=== PATIENT | female | born 1995 | race Two or more races ===

== ENCOUNTER 2022-09-16 13:14 | Outpatient (REF) | payer MEDICAID, SELFPAY ==
[2022-09-16 21:01] LABS: Abs Immature Grans 0.02 10^3/uL (0.0-0.06); Absolute Basophil Count 0.06 10^3/uL (0.0-0.2); Absolute Eosinophil Count 0.21 10^3/uL (0.0-0.7); Absolute Neutrophil Count 4.98 10^3/uL (1.2-6.7); Basophils % 0.8; Eosinophils % 2.6; HCT 47.5 % (36.0-46.0); HGB 16.6 g/dL (11.2-15.7); Immature Grans % 0.3; Lymphocytes % 27.6; MCH 32.4 pg (27.0-33.0); MCHC 34.9 % (32.0-36.0); MCV 93 fL (80-95); Monocytes % 6.3; Neutrophils % 62.4; Platelet Count 297 10^3/uL (130-400); RBC 5.13 10^6/uL (3.93-5.22); RDW 11.9 % (11.7-14.6); RDW-SD 40.3 fL; WBC 7.97 10^3/uL (4.4-10.8)
[2022-09-16 21:20] LABS: ALT 29 U/L (14-59); AST 24 U/L (15-37); Albumin 4.2 g/dL (3.4-5.0); Alkaline Phosphatase 127 U/L (46-116); Anion Gap 9.3 mmol/L (3-11); BUN 10 mg/dL (7-18); Bilirubin, Total 0.5 mg/dL (0.2-1.0); CO2 23.7 mmol/L (21.0-32.0); CREATININE 0.9 mg/dL (0.55-1.02); Calcium 9.4 mg/dL (8.5-10.1); Chloride 104 mmol/L (98-107); Estimated GFR 89.86 (mL/min/1.73m2); Glucose 87 mg/dL (74-106); Potassium 4.2 mmol/L (3.5-5.1); Sodium 137 mmol/L (136-145); TSH 1.16 uIU/mL (0.36-3.74); Total Protein 7.7 g/dL (6.4-8.2)
[2022-09-20 11:15] LABS: FSH 7.2 mIU/mL (See Note)
== END 2022-09-16 13:15 | disposition home or self-care (01) ==
LOC: LBN 13:14
PROVIDERS: PCP Nurse Practitioner Family; Visit Provider Nurse Practitioner Family
DX: N91.0 Primary amenorrhea (principal); R53.83 Other fatigue; L72.8 Other follicular cysts of the skin and subcutaneous tissue; R61 Generalized hyperhidrosis
CPT/HCPCS: 80053; 83001; 83002; 84443; 85025

== ENCOUNTER 2022-10-04 01:48 | Outpatient (CLI) | payer MEDICAID, SELFPAY ==
--- NOTE | 2022-10-04 07:15 | DI.US_ITS ---
Exam(s) US SOFT TISS EXTREMITY/GROIN EXAM: US SOFT TISS EXTREMITY/GROIN CLINICAL HISTORY: evaluate pathology rt groin, groin mass, r19.09. TECHNIQUE: Ultrasound was performed using standard protocol. COMPARISON: No exams were available for comparison FINDINGS: Sonographic assessment utilizing grayscale and color Doppler imaging was performed and targeted to th e area of clinical concern. There is a 1.9 x 0.9 x 2.0 cm hypoechoic vascular nodule in the subcutaneous tissues in the right ing uinal region. There is also a 3.1 x 0.9 x 1.2 cm sonographically benign-appearing lymph node in the adjacent soft tissues. IMPRESSION: 1.9 x 0.9 x 2 cm complex vascular nodule in the right inguinal region. This may represent a enlarged lymph node. Other subcutaneous masses cannot be entirely excluded. Please correlate with patient's medical history. A follow-up ultrasound in 2-3 weeks is recommended for re-evaluation. DATA REPOSITORY:
== END 2022-10-04 02:08 ==
LOC: DI 01:48
PROVIDERS: PCP Nurse Practitioner Family; Visit Provider Nurse Practitioner Family
DX: R22.41 Localized swelling, mass and lump, right lower limb; R59.0 Localized enlarged lymph nodes; R19.03 Right lower quadrant abdominal swelling, mass and lump
CPT/HCPCS: 76882

== ENCOUNTER 2022-11-23 02:10 | Outpatient (CLI) | payer MEDICAID, SELFPAY ==
--- NOTE | 2022-11-23 07:45 | DI.US_ITS ---
Exam(s) US SOFT TISS EXTREMITY/GROIN EXAM: US SOFT TISS EXTREMITY/GROIN CLINICAL HISTORY: re-eval mass of right groin present for months, R19.09, rt inguinal mass,R1. TECHNIQUE: Ultrasound was performed using standard protocol. COMPARISON: US US SOFT TISS EXTREMITY/GROIN from 10/04/2022 FINDINGS: Again noted is a previously described superficially located abnormal appearing nodule measures approx imately 1.8 x 1.5 x 1. 0 cm and appears vascular. Appear similar to previous. There are other more normal appearing slightly prominent lymph nodes in the ipsilateral right groin. IMPRESSION: Persistent abnormal vascular 18 x 15 x 10 mm nodule in the right groin, not decreased in size. This may represent an abscess in the correct clinical setting. Other considerations are abnormal vascular lymph node or other vascular lesion. Consider surgical co nsult. DATA REPOSITORY:
== END 2022-11-23 02:30 ==
LOC: DI 02:10
PROVIDERS: PCP Nurse Practitioner Family; Visit Provider Nurse Practitioner Family
DX: R19.09 Other intra-abdominal and pelvic swelling, mass and lump (principal)
CPT/HCPCS: 76882

== ENCOUNTER 2022-12-01 06:21 | Day surgery (SDC) | payer MEDICAID, SELFPAY ==
[2022-12-01] VITALS (7 sets, daily range): BP systolic 94–125; BP diastolic 35–78; PULSE 75–83; RESP 16–21; TEMP 36–36.8; O2SAT 94–99; BMI 48.0
--- NOTE | 2022-12-01 06:16 | W.PM.PROGNOT ---
Date of Service Date of service: 12/01/22 Time of Service: 06:16 Assessment and Plan Assessment and plan (1) Sebaceous cyst: Status: Acute Assessment and plan: Gain discussed risks, benefits and complications of the procedure. Complications include but are not limited to bleeding, pain, injury to nerves, infection, wound dehisence, and recurrance. Patient seems to have a good understanding of the risks and is willing to proceed. No guarantees were given or implied. Proceed with excision of sebaceous cyst in the right groin Subjective Subjective Interval history since last seen: Patient is here today for excision of a small sebaceous cyst of the right groin. There have been no changes in her health since she was last seen. Exam Const General: comfortable and anxious Orientation: alert and oriented x3 HENMT Head: normocephalic and atraumatic Resp Effort & Inspection: normal respiratory effort Auscultation: clear to auscultation bilaterally Cardio Rate: regular rate Rhythm: regular rhythm GI Other: Right groing- small sebaceous cyst palpated Time Spent with Patient Time Spent with Patient: <25 minutes Time was spent: counseling the patient
--- NOTE | 2022-12-01 06:21 | W.PM.OP ---
Date of service: 12/01/22 Time of Service: 07:59 Operative Note Operative Note DATE OF PROCEDURE: 12/01/22 PRE-OP DIAGNOSIS: right groin sebaceous cyst POST-OP DIAGNOSIS: same PROCEDURE: ecxision of sebaceous cyst SURGEON: Deneen Hoyt ANESTHESIA TYPE: Local By Surgeon and General:No Airway Refer to Anesthesia Record COMPLICATIONS: None Patient was transported to: PACU Patient's condition: stable Indications: Emily is a pleasant 27-year-old female who I saw in the office for a cyst in her right groin. Ultrasound suggestive of a sebaceous cyst. Underlying lymph nodes were normal. Patient was concerned because of a family history of lymphoma. We discussed excision of the cyst in the office versus the operating room. The patient is quite anxious and would prefer to be sedated. Risks benefits and complications of the procedure were reviewed with her. I saw her in same-day surgery the morning of the procedure. We reviewed the risks and benefits again as well as the complications. Patient understood the risks and complications and wished to proceed. Findings: small sebaceous cyst. Normal feeling lymph nodes Procedure Description: After informed consent was obtained and the right groin was marked, the patient was taken to the operating room and placed in a supine position. Monitors were applied and a timeout was done. The patient was then placed under sedation. Once comfortable the skin was prepped and draped in a sterile surgical fashion. Next 1% lidocaine with epinephrine was injected around the sebaceous cyst in the right groin. An elliptical incision was made around the palpable lesion with a 15 blade. Dissection was done around the lesion with curved iris scissors and the 15 blade. Once the lesion was completely dissected it was placed into formalin and sent to pathology. There was some bleeding noted and this was suture ligated. The wound was irrigated with some saline. Once the wound was clean and dry the subcutaneous tissue was reapproximated with 3-0 Vicryl interrupted sutures. The dermis was closed with a running 4-0 monoceyl suture. Skin was cleaned and dried and dermabond was applied. The patient tolerated the procedure well and there were no immediate complications. Needle counts were correct at the end of the case.
--- NOTE | 2022-12-01 06:26 | W.PM.DSUDISC ---
Date of service: 12/01/22 Time of Service: 08:03 Discharge Plan Disposition Patient Disposition: Home Condition: Stable Discharge Details Reason For Visit: sebaceous cyst excision Attending Provider: Deneen Hoyt Primary Care Provider: Alicia Gray Home Meds and New Rx's Prescriptions: Continued dextroamphetamine-amphetamine [Adderall XR] 20 mg capsule,extended release 24hr 40 mg PO DAILY albuterol sulfate 90 mcg/actuation HFA aerosol inhaler 2 puff inhalation Q6H PRN (Reason: shortness of breath or wheezing) Qty: 8.5 0RF (DME) Aerochamber MV Spacer See Rx Instructions .Route Qty: 1 0RF Rx Instructions: As directed norgestimate-ethinyl estradiol [Sprintec (28)] 0.25-35 mg-mcg tablet 1 tab PO DAILY Qty: 84 4RF clindamycin phosphate 1 % solution 1 applic topical BID Rx Instructions: apply every 12 hours to cystic lesions Discharge Instructions Instructions: Care For Your Absorbable Stitches (DC) Additional Instructions: Activity at Home after surgery: 1. As tolerated Diet, Nutrition, & wound healin. As tolerated Pain Medications: 1. Tylenol 650mg every 6 hours as needed and Ibuprofen 600 mg every 6 hours as needed. You may alternate between the 2 medications every 3 hours For Constipation: 1. Take Milk of Magnesia or MiraLax as needed for constipation Other: 1. You may shower daily. Do not scrub the incisions 2. Do not soak the incisions for 1 week 3. You may alternate ice and heat as needed for pain and swelling Wound Care: 1. Keep the incisions clean and dry Please call our office if you develop: 1. Fevers >101.5 2. Nausea or Vomiting 3. Worsening pain 4. Redness and thick discharge from the wounds If after hours please call the Hospital at and ask to speak to the on-call surgeon FINDINGS: There was a sebaceous cyst. I did not feel or see any abnormal Lymph nodes Stand Alone Forms: Anesthesia Discharge InstSander Moreno (DSU) Activity:: Activity as Tolerated Remove Dressings/Wound Care:: Do Not Remove Shower/Bathe:: 24 hours Diet:: As Tolerated Discharge Orders Discharge Orders: Discharge Order (Routine); Ordered 12/01/22 Ordered By: Deneen Hoyt DS: Diagnosis Discharge Diagnosis (1) Sebaceous cyst: Status: Acute Asessment and Plan: Saw Emily in SDS once awake from her deep sedation. We reviewed the findings at time of surgery. Reviewed activity. I would recommend not doing Physical therapy tomorrow. She should be OK to resume PT on Tuesday. She has minimal pain at the surgical site. She has had no N/V. She has tolerated clear liquids and toast. She has no questions at this time.
--- NOTE | 2022-12-01 06:40 | ANES.PREOP_ITS ---
General Info Date of Service Date Performed: 12/01/22 Height: 5 ft 4 in Weight: 127.006 kg Body Mass Index (BMI): 48.0 Surgical Procedure: Operation Date: 12/01/22 07:40 Proposed Procedure Side Surgeon p Excision Cyst Rt Groin Right Deneen Hoyt MD s Possible Excisional Biopsy Lymph Node Right Deneen Hoyt MD Meds Allergies and Home Medications Allergies Allergy/AdvReac Type Severity Reaction Status Date / Time No Known Allergies Allergy Verified 12/01/22 06:33 Home Medication Medication Instructions Recorded albuterol sulfate 90 mcg/actuation 2 puff inhalation Q6H PRN 09/16/22 aerosol inhaler shortness of breath or wheezing #8.5 grams clindamycin phosphate 1 % topical 1 applic topical BID 09/16/22 solution dextroamphetamine-amphetamine ER 40 mg PO DAILY 09/16/22 20 mg 24hr capsule,extend release (Adderall XR) inhalational spacing device #1 ea 09/16/22 (Aerochamber MV spacer) norgestimate 0.25 mg-ethinyl 1 tab PO DAILY #84 tabs 10/04/22 estradiol 35 mcg tablet (Sprintec (28)) Current Visit Medications: Current Medications Generic Name Dose Route Start Last Admin Trade Name Freq PRN Reason Stop Dose Admin Ringer's Solution 1,000 mls @ 80 mls/hr 12/01/22 06:00 IV 12/30/22 23:59 INFUSION [facility] Cefazolin Sodium 3,000 mg/ 100 mls @ 200 mls/hr 12/01/22 06:00 Sodium Chloride IVPB 12/01/22 16:00 PREOP [facility] Ondansetron HCl 4 mg/ Sodium 52 mls @ 200 mls/hr 12/01/22 06:27 Chloride IVPB 12/31/22 06:26 Q6H PRN PRN IV Miscellaneous Supplies 1 each 12/01/22 06:00 Iv Access IV 12/30/22 23:59 DIRECTED CHRISTINA Ibuprofen 600 mg 12/01/22 06:27 Ibuprofen 600 Mg Tab PO 12/31/22 06:26 Q6H PRN PRN Pain Sodium Chloride 0 ml 12/01/22 06:00 Normal Saline Flush 10 Ml Syr IV 12/30/22 23:59 PRN PRN Sodium Chloride 0 ml 12/01/22 06:00 Normal Saline 10 Ml Vial IJ 12/30/22 23:59 DIRECTED PRN Sterile Water 0 ml 12/01/22 06:00 Water,Injection,Sterile 10 Ml Vial IJ 12/30/22 23:59 DIRECTED PRN PFSH Active Problems Active Problems: Problem Status Onset Code Sebaceous cyst L72.3 Mass of right inguinal region R19.09 Borderline personality disorder F60.3 Chronic low back pain M54.50, G89.29 Depression F32.A Asthma J45.909 Migraine G43.909 ADHD F90.9 PCOS (polycystic ovarian syndrome) E28.2 Medical History Medical History Heroin addiction Sober 10 years, used methadone program in [place] Surgical History Surgical History History of cholecystectomy Tobacco Smoking/Tobacco Use Status: Current every day Tobacco Type: cigarettes Alcohol Alcohol Intake: current Alcohol intake frequency: a few times a month Substance Use Substance use: Daily Substance use type: former substance user Date of last use: Heroin 2012, marijuana and heroin Details: Clean from heroin 10 years Prental History History 8 Para Hx # Term Pregnancies Multiple births Hx # Pregnancies Ectopic pregnancies AB induced Hx Number of Living Children 0 AB spontaneous Vital Signs and Lab Results Lab Results Blood Type / Crossmatch: No Data to Display Complete Blood Count: No Data to Display Complete Metabolic Panel: No Data to Display Liver Function Panel: No Data to Display Coagulation Panel: No Data to Display Cardiac Panel: No Data to Display Arterial Blood Gas: No Data to Display Venous Blood Gas: No Data to Display Pancreas Panel: No Data to Display Thyroid Panel: No Data to Display Infectious Disease: No Data to Display Blood Cultures: No Data to Display Toxicology Panel: No Data to Display Panel: No Data to Display Anesthesia Assessment and Plan Anesthesia History Personal History: No History of Anesthesia Complications Family History: No Family History of Anesthesia Complications Exercise Tolerance Exercise Tolerance: Metabolic Equivalents>4 Pertinent Negatives Pertinent Negatives: No Symptoms of GERD, No Major Cardiovascular Symptoms or Complaints, No Major Pulmonary Symptoms or Complaints and No History of CVA/TIA Cardiac & Pulmonary Exam Cardiac Exam: Normal S1/S2 Heart Sounds Pulmonary Exam: Clear Bilateral Breath Sounds Implantable Cardiac Device Does patient have a Pacemaker or an ICD?: No Airway Exam Known Difficult Airway: No Mallampati Class: 2 Mouth Opening: Normal (> 3cm) Thyromental Distance: Greater than 3 cm Neck Range of Motion: Full ROM Neck Circumference: Normal Teeth Condition: Normal Dentition ASA Classification ASA Score: ASA 3 Emergency Case?: No NPO Status NPO Status: NPO Clears >2 hours, Solids >8 hours Status Status: Negative HCG Anesthesia Plan Resuscitation Status: Full Code Anesthesia Technique: General Anesthesia Airway Planned: Natural Airway Monitors Used: Standard Monitors
[2022-12-01] MEDS: Lactated Ringers 1,000 ML 80 ML IV (06:54)
[2022-12-01] MEDS: ceFAZolin 3,000 MG in Normal Saline 100 ML 200 MG IVPB (07:25)
[2022-12-01] MEDS: Lidocaine 1% Multi-Dose W/EPI 1/100,000 50 ML VIAL (07:39)
--- NOTE | 2022-12-01 07:49 | SOFT_PTH ---
PATIENT: Elizabeth Streeter LOC: [facility] U#:[id number] AGE/SX: 27/F ROOM: RE12/01/[address]: Deneen Hoyt MD : 1995 BED: DIS: 12/01/2022 SPEC #: [id number] RECD: 12/01/22 12:32 STATUS: VIK REJeremy #: [id number] VIN: 12/01/22 07:[address]: Deneen Hoyt DEPT: Surgical Specimen RECD BY: Nataliia Woodson ENTERED: 12/01/22 12:33 SP TYPE: SOFT OTHR DR: ADRIANA Ken Tissues: 1 - SOFT TISSUE-CYST(NOT LIPOMA) Procedures: GROSS AND MICRO LEVEL 3 Comments: [id number]
--- NOTE | 2022-12-01 08:46 | W.ANESPOSTOP ---
Postoperative Evaluation Date, Time and Location Date Performed: 12/01/22 Time Performed: 08:22 Patient Location: PACU Vital Signs Most Recent Imported Vital Signs: Most Recent Vital Signs Temp Pulse Resp BP Pulse Ox 36 C L 75 16 120/62 97 12/01/22 08:25 12/01/22 08:25 12/01/22 08:25 12/01/22 08:25 12/01/22 08:25 Pain Score Most Recent Pain Score: Most Recent Pain Score Pain Level 0 12/01/22 08:25 Assessment Mental Status: Awake (Alert & Oriented to Patient Baseline) Airway and Respiratory Function: Patent airway with normal (patient baseline) respiratory exam Cardiovascular Function: Hemodynamically Stable Hydration Status: Adequately Hydrated Nausea & Vomiting: No Nausea or Vomiting Pain: Pt. Denies Any Pain Peripheral Nerve Block: Patient did not receive a nerve block
== END 2022-12-01 09:20 | disposition home or self-care (01) ==
PROVIDERS: PCP Nurse Practitioner Family; Visit Provider Surgery
PROC: (CPT 11402; principal; 2022-12-01 07:30)
DX: L72.3 Sebaceous cyst (principal); L02.214 Cutaneous abscess of groin
CPT/HCPCS: 11402; 12031; 81025; 88305; 88304; J0131; J0690; J1100; J2250; J2405; J2704

== ENCOUNTER 2023-02-16 15:57 | Outpatient (REF) | payer MEDICAID, SELFPAY ==
--- NOTE | 2023-02-16 15:40 | PAPFT_PTH ---
PATIENT: Elizabeth Streeter LOC: [facility] U#:[id number] AGE/SX: 27/F ROOM: RE02/16/[address]: Janneth Santillan DO : 1995 BED: DIS: 02/16/2023 SPEC #: [id number] RECD: 02/16/23 17:52 STATUS: VIK REQ #: [id number] VIN: 02/16/23 15:[address]: Janneth Santillan DEPT: [facility] Cytology RECD BY: Nataliia Woodson Tissues: 1 - CX/ENDOCX FOR PAP SMEARS Procedures: PAP THIN PREP/UVM Screening HPV DNA PROBE Comments: [id number]
== END 2023-02-16 15:58 | disposition home or self-care (01) ==
LOC: LBN 15:57
PROVIDERS: Visit Provider Obstetrics & Gynecology
DX: Z11.51 Encounter for screening for human papillomavirus (HPV) (principal); R87.610 Atypical squamous cells of undetermined significance on cytologic smear of cervix (ASC-US)
CPT/HCPCS: 88142; 87624

== ENCOUNTER → 2023-03-10 14:53 | Outpatient (CLI) | payer MEDICAID, SELFPAY ==
--- NOTE | 2023-03-10 13:00 | DI.RAD_ITS ---
Exam(s) XR CHEST 2V PA LATERAL EXAM: XR CHEST 2V PA LATERAL CLINICAL HISTORY: cough, r/o pneumonia COUGH R05.9 TECHNIQUE: 2D digital imaging was performed. COMPARISON: No exams were available for comparison FINDINGS: HEART: Normal size. Aorta: Not dilated. PULMONARY VASCULATURE: Normal. LUNGS: Clear. PLEURAL SPACE: No pleural effusion or pneumothorax. BONE:Unremarkable for age. Soft tissues: Surgical clips right upper quadrant. IMPRESSION: No acute abnormality. DATA REPOSITORY: RADIATION DOSE DELIVERED:
== END ==
PROVIDERS: Visit Provider Physician Assistant
DX: R05.9 Cough, unspecified (principal)
CPT/HCPCS: 71046

== ENCOUNTER 2023-06-21 03:39 | Outpatient (CLI) | payer MEDICAID, SELFPAY ==
[2023-06-21 16:21] LABS: Panorama Kit Sent via Fed Ex
[2023-06-21 16:32] LABS: Abs Immature Grans 0.04 10^3/uL (0.0-0.06); Absolute Basophil Count 0.03 10^3/uL (0.0-0.2); Absolute Eosinophil Count 0.14 10^3/uL (0.0-0.7); Absolute Monocyte Count 0.34 10^3/uL (0.1-0.8); Absolute Neutrophil Count 7.97 10^3/uL (1.2-6.7); Basophils % 0.3; Eosinophils % 1.3; HCT 39.6 % (36.0-46.0); HGB 13.7 g/dL (11.2-15.7); Immature Grans % 0.4; Lymphocytes % 18.2; MCH 31.9 pg (27.0-33.0); MCHC 34.6 % (32.0-36.0); MCV 92 fL (80-95); MPV 9.2 fL (8.0-11.0); Monocytes % 3.3; Neutrophils % 76.5; Platelet Count 295 10^3/uL (130-400); RDW-SD 40.4 fL; WBC 10.42 10^3/uL (4.4-10.8)
[2023-06-21 16:43] LABS: Glucose,1 Hr (Glucola) 132 mg/dL (80-140)
[2023-06-21 17:25] LABS: ALT 18 U/L (14-59); AST 14 U/L (15-37); Alkaline Phosphatase 106 U/L (46-116); Anion Gap 10.7 mmol/L (3-11); BUN 5 mg/dL (7-18); Bilirubin, Total 0.5 mg/dL (0.2-1.0); CO2 25.3 mmol/L (21.0-32.0); CREATININE 0.7 mg/dL (0.55-1.02); Calculated LDL 173 mg/dL (<100); Chloride 101 mmol/L (98-107); Cholesterol 256 mg/dL (<200); Estimated GFR 120.74 (mL/min/1.73m2); Glucose 124 mg/dL (74-106); HDL Cholesterol 60 mg/dL (40-60); Potassium 3.7 mmol/L (3.5-5.1); Sodium 137 mmol/L (136-145); TSH (W/Ref FT4) 1.36 uIU/mL (0.36-3.74); Triglyceride 115 mg/dL (<150)
[2023-06-23 09:22] LABS: Hepatitis B Surface Ag Negative (Negative)
[2023-06-23 10:01] LABS: HIV-1/2 Ag & Ab Screen Negative (Negative)
[2023-06-23 10:14] LABS: Varicella IgG Antibody Positive (See Note)
[2023-06-23 10:17] LABS: Hepatitis C Ab w Rflx HCV PCR Negative (Negative)
[2023-06-23 10:26] LABS: Rubella IgG Ab (UVM) Positive (See Note)
[2023-06-24 21:28] LABS: Syphilis IgG w/Reflex Nonreactive (Nonreactive)
[2023-07-01 16:39] LABS: Result Summary NEGATIVE; Specimen WB Whole Blood
== END 2023-06-21 03:40 | disposition home or self-care (01) ==
LOC: LBO 03:39
PROVIDERS: PCP Nurse Practitioner Family; Visit Provider Advanced Practice Midwife
DX: Z76.89 Persons encountering health services in other specified circumstances (principal); Z34.91 Encounter for supervision of normal pregnancy, unspecified, first trimester
CPT/HCPCS: 36415; 80053; 80061; 81220; 81222; 82950; 86787; 86803; 86850; 86900; 86901; 87340; 87389; 83036; 84443; 85025; 86762; 86780

== ENCOUNTER 2023-06-21 19:40 | Outpatient (REF) | payer MEDICAID, SELFPAY ==
[2023-06-21 20:25] LABS: *AMPHETAMINES SCREEN URINE Negative (Negative); *BARBITURATES SCREEN URINE Negative (Negative); *BENZODIAZEPINES SCREEN URINE Negative (Negative); Cannabinoids THC Positive (Negative); Cocaine Screen,Urine Negative (Negative); METHADONE URINE SCREEN Negative (Negative); OPIATES URINE SCREEN Negative (Negative)
[2023-06-21 20:28] LABS: Tricyclic Antidepressants Negative (Negative)
[2023-06-23 14:37] LABS: Chlamydia Result Negative (Negative); GC Result Negative (Negative)
[2023-06-28 09:00] LABS: Buprenorphine Negative ng/mL (Cutoff: 5.0); Norbuprenorphine Negative ng/mL (Cutoff: 2.5)
== END 2023-06-21 19:41 | disposition home or self-care (01) ==
LOC: LBN 19:40
PROVIDERS: PCP Nurse Practitioner Family; Visit Provider Advanced Practice Midwife
DX: Z34.91 Encounter for supervision of normal pregnancy, unspecified, first trimester (principal)
CPT/HCPCS: 80307; 80348; 87491; 87591; 87086

== ENCOUNTER 2023-07-19 04:14 | Outpatient (CLI) | payer MEDICAID, SELFPAY ==
[2023-07-19 16:24] LABS: Abs Immature Grans 0.06 10^3/uL (0.0-0.06); Absolute Basophil Count 0.05 10^3/uL (0.0-0.2); Absolute Eosinophil Count 0.15 10^3/uL (0.0-0.7); Absolute Lymphocyte Count 2.31 10^3/uL (1.2-3.4); Absolute Monocyte Count 0.37 10^3/uL (0.1-0.8); Absolute Neutrophil Count 7.55 10^3/uL (1.2-6.7); Basophils % 0.5; Eosinophils % 1.4; HCT 38.6 % (36.0-46.0); HGB 13.3 g/dL (11.2-15.7); Immature Grans % 0.6; MCH 31.7 pg (27.0-33.0); MCHC 34.5 % (32.0-36.0); MCV 92 fL (80-95); MPV 9.1 fL (8.0-11.0); Monocytes % 3.5; Platelet Count 284 10^3/uL (130-400); RBC 4.19 10^6/uL (3.93-5.22); RDW 12.3 % (11.7-14.6); RDW-SD 41.1 fL; WBC 10.49 10^3/uL (4.4-10.8)
[2023-07-20 19:34] LABS: Hepatitis C Ab w Rflx HCV PCR Negative (Negative)
[2023-07-20 19:42] LABS: HIV-1/2 Ag & Ab Screen Negative (Negative)
[2023-07-22 13:09] LABS: AFP 18.8 ng/mL; Calculated age at EDD 29 years; GA used in risk estimate Scan estimate; IVF Pregnancy No; Initial or repeat testing Initial testing; Insulin dependent diabetes No; Maternal Weight 296 lbs; Number of Fetuses 1; Prev Pregnancy w/NTD No; RECOMMENDED FOLLOW UP None.; Results Summary Normal risk
== END 2023-07-19 04:15 | disposition home or self-care (01) ==
LOC: LBO 04:15
PROVIDERS: Obstetrics & Gynecology; PCP Nurse Practitioner Family; Visit Provider Advanced Practice Midwife
DX: Z34.92 Encounter for supervision of normal pregnancy, unspecified, second trimester (principal); Z36.89 Encounter for other specified antenatal screening; Z3A.15 15 weeks gestation of pregnancy
CPT/HCPCS: 36415; 86803; 87389; 82105; 85025

== ENCOUNTER → 2023-09-14 01:05 | Outpatient (CLI) | payer MEDICAID, SELFPAY ==
--- NOTE | 2023-09-14 07:30 | DI.US_ITS ---
Exam(s) US OB CERVICAL LENGTH EXAM: US OB CERVICAL LENGTH CLINICAL HISTORY: cervical length,PRIOR DEMISE,o09.299. TECHNIQUE: Transvaginal cervical length determination ultrasound was performed. COMPARISON: US POCUS EXAM from 06/21/2023 FINDINGS: Cervical length measurements average 3.5 cm The endocervical canal is closed. Placenta is anterior grade 1 with no evidence of placenta previa. The distance between the tip of th e placenta and the internal cervical os is 6.3 cm IMPRESSION: Cervical length is 3.5 cm. The endocervical is closed. Placenta is anterior with no evidence of placenta previa DATA REPOSITORY:
== END ==
PROVIDERS: PCP Nurse Practitioner Family; Visit Provider Obstetrics & Gynecology
DX: O09.293 Supervision of pregnancy with other poor reproductive or obstetric history, third trimester (principal); Z3A.23 23 weeks gestation of pregnancy
CPT/HCPCS: 76815

== ENCOUNTER 2023-09-15 01:36 | Outpatient (CLI) | payer MEDICAID, SELFPAY ==
[2023-09-15 11:19] LABS: Abs Immature Grans 0.05 10^3/uL (0.0-0.06); Absolute Basophil Count 0.04 10^3/uL (0.0-0.2); Absolute Eosinophil Count 0.24 10^3/uL (0.0-0.7); Absolute Lymphocyte Count 2.04 10^3/uL (1.2-3.4); Absolute Neutrophil Count 7.26 10^3/uL (1.2-6.7); Basophils % 0.4; Eosinophils % 2.4; HCT 36.8 % (36.0-46.0); HGB 12.6 g/dL (11.2-15.7); Immature Grans % 0.5; Lymphocytes % 20.3; MCH 32.1 pg (27.0-33.0); MCHC 34.2 % (32.0-36.0); MCV 94 fL (80-95); MPV 9.2 fL (8.0-11.0); Neutrophils % 72.4; Platelet Count 277 10^3/uL (130-400); RBC 3.92 10^6/uL (3.93-5.22); RDW 12.5 % (11.7-14.6); RDW-SD 43.1 fL; WBC 10.03 10^3/uL (4.4-10.8)
[2023-09-15 11:33] LABS: Glucose,1 Hr (Glucola) 142 mg/dL (80-140)
[2023-09-19 13:32] LABS: AFP 91.3 ng/mL; Calculated age at EDD 29 years; Cigarette smoking status non-Smoker; GA used in risk estimate Scan estimate; IVF Pregnancy No; Initial or repeat testing Initial testing; Insulin dependent diabetes No; Maternal Weight 287 lbs; Number of Fetuses 1; Physician Phone Number 802-748-7300; Prev Pregnancy w/NTD No
== END 2023-09-15 01:37 | disposition home or self-care (01) ==
LOC: LBO 01:36
PROVIDERS: PCP Nurse Practitioner Family; Visit Provider Obstetrics & Gynecology
DX: Z34.92 Encounter for supervision of normal pregnancy, unspecified, second trimester (principal)
CPT/HCPCS: 36415; 82950; 82105; 85025

== ENCOUNTER 2023-09-22 05:19 | Outpatient (CLI) | payer MEDICAID, SELFPAY ==
[2023-09-22 09:06] LABS: Glucose 1 Hour 143 mg/dL
[2023-09-22 11:06] LABS: Glucose 3 Hour 90 mg/dL
== END 2023-09-22 05:20 | disposition home or self-care (01) ==
LOC: LBO 05:19
PROVIDERS: PCP Nurse Practitioner Family; Visit Provider Obstetrics & Gynecology
DX: R73.09 Other abnormal glucose (principal)
CPT/HCPCS: 36415; 82951

== ENCOUNTER 2023-09-26 12:39 | Emergency (ER) | payer MEDICAID, SELFPAY ==
[2023-09-26 12:42] VITALS: BP 131/84; PULSE 98; RESP 18; TEMP 37.1; O2SAT 98
--- NOTE | 2023-09-26 13:03 | ED.GENADUL_ITS ---
Discharge Plan Disposition Patient Disposition: Home Discharge Details Clinical Impression: Vaginal bleeding in Primary Care Provider: Alicia Gray ED Provider: Melania Allan Home Meds and New Rx's Prescriptions: No Action (DME) Aerochamber MV Spacer See Rx Instructions .Route Qty: 1 0RF Rx Instructions: As directed montelukast [Singulair] 10 mg tablet 10 mg PO DAILY Qty: 90 3RF budesonide-formoterol [Symbicort] 160-4.5 mcg/actuation HFA aerosol inhaler 2 inh inhalation BID Qty: 10.2 3RF Rx Instructions: 2 puffs twice a day and may use 1-2 puffs q4-6hrs as needed as for shortness of breath. Max 12 inhalations per day clindamycin phosphate 1 % solution 1 applic topical BID PRN (Reason: hidradenitis flare) Qty: 60 3RF aspirin 81 mg tablet,delayed release (DR/EC) 81 mg PO DAILY Qty: 45 8RF Rx Instructions: take 1 tablet daily alternating with 2 tablets daily ondansetron 4 mg tablet,disintegrating 4 mg PO Q6H Qty: 90 0RF ipratropium-albuterol 0.5 mg-3 mg(2.5 mg base)/3 mL solution for nebulization 3 ml inhalation Q6H PRN (Reason: wheezing) Qty: 90 3RF Discharge Instructions Additional Instructions: You are to go directly to the [facility] birthing center for further evaluation and management of your vaginal bleeding in . HPI General Date/Time Provider Initiated Documentation: 09/26/23 12:48 . HPI Narrative: Emily is a 27-year-old female who presents to the emergency department today for evaluation of new onset vaginal bleeding in . She reports she has been 5 or 6 times, had a miscarriage not too long ago. She is currently 24 weeks and 6 days , says that she had her ultrasounds performed at [facility] and recently had glucose tolerance test, all results reassuring. She says that this has been an uneventful , says this is a for this along she has ever been . She [place] [facility] Today she felt some mild cramping that she thought was gas discomfort, went to the bathroom and noticed clotted blood on the toilet paper. She denies forceful cramping, says it is mild generalized cramping. She reports she has recently been in good health, denies nausea/vomiting, other unusual vaginal discharge, urinary or bowel concerns other than mild constipation attributed to . Denies other significant past medical history. Related Data Home Medications Medication Instructions Recorded Confirmed inhalational spacing device #1 ea 09/16/22 09/13/23 (Aerochamber MV spacer) budesonide-formoterol HFA 160 2 inh inhalation BID #10.2 grams 03/16/23 09/26/23 mcg-4.5 mcg/actuation aerosol inhaler (Symbicort) montelukast 10 mg tablet 10 mg PO DAILY #90 tabs 03/16/23 09/26/23 (Singulair) ipratropium 0.5 mg-albuterol 3 mg 3 ml inhalation Q6H PRN wheezing 03/17/23 09/26/23 (2.5 mg base)/3 mL nebulization #90 mL soln clindamycin phosphate 1 % topical 1 applic topical BID PRN 04/15/23 09/26/23 solution hidradenitis flare #60 mL ondansetron 4 mg disintegrating 4 mg PO Q6H #90 tabs 05/03/23 09/26/23 tablet aspirin 81 mg tablet,delayed 81 mg PO DAILY #45 tabs 06/21/23 09/26/23 release Previous Rx's Medication Instructions Recorded inhalational spacing device #1 ea 09/16/22 (Aerochamber MV spacer) budesonide-formoterol HFA 160 2 inh inhalation BID #10.2 grams 03/16/23 mcg-4.5 mcg/actuation aerosol inhaler (Symbicort) montelukast 10 mg tablet 10 mg PO DAILY #90 tabs 03/16/23 (Singulair) ipratropium 0.5 mg-albuterol 3 mg 3 ml inhalation Q6H PRN wheezing 03/17/23 (2.5 mg base)/3 mL nebulization #90 mL soln clindamycin phosphate 1 % topical 1 applic topical BID PRN 04/15/23 solution hidradenitis flare #60 mL ondansetron 4 mg disintegrating 4 mg PO Q6H #90 tabs 05/03/23 tablet aspirin 81 mg tablet,delayed 81 mg PO DAILY #45 tabs 06/21/23 release Allergies Allergy/AdvReac Type Severity Reaction Status Date / Time No Known Allergies Allergy Verified 09/26/23 12:51 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 Review of Systems Narrative: see HPI Exam Const General: cooperative, healthy appearing and comfortable Nutritional Appearance: obese Resp Effort & Inspection: normal respiratory effort and able to speak in complete sentences Auscultation: clear to auscultation bilaterally Cardio Rate: regular rate Rhythm: regular rhythm GI Inspection: normal to inspection Palpation: soft, not firm, no guarding and nontender Auscultation: normal bowel sounds Course Vital Signs Vital signs: Vital Signs Temperature 37.1 C 09/26/23 12:42 Pulse 98 H 09/26/23 12:42 Respiratory Rate 18 09/26/23 12:42 Blood Pressure 131/84 09/26/23 12:42 Pulse Oximetry 98 09/26/23 12:42 Temperature 37.1 C 09/26/23 12:42 Temperature Source Temporal Artery Scan 09/26/23 12:42 Pulse 98 H 09/26/23 12:42 Respiratory Rate 18 09/26/23 12:42 Respiratory Effort Normal, Non-Labored 09/26/23 12:46 Blood Pressure 131/84 09/26/23 12:42 Blood Pressure Position Sitting 09/26/23 12:42 Pulse Oximetry 98 09/26/23 12:42 Oxygen Delivery Method Room Air 09/26/23 12:42 Oxygen Flow Rate 0 09/26/23 12:42 Pain Level 2 09/26/23 12:42 Medical Decision Making Emily is a 27-year-old female who presents to the emergency department today for evaluation of new onset vaginal bleeding in . She reports she has been 5 or 6 times, had a miscarriage not too long ago. She is currently 24 weeks and 6 days , says that she had her ultrasounds performed at [facility] and recently had glucose tolerance test, all results reassuring. She says that this has been an uneventful , says this is a for this along she has ever been . She is [place] [facility] Today she felt some mild cramping that she thought was gas discomfort, went to the bathroom and noticed clotted blood on the toilet paper. She denies forceful cramping, says it is mild generalized cramping. She reports she has recently been in good health, denies nausea/vomiting, other unusual vaginal discharge, urinary or bowel concerns other than mild constipation attributed to . Denies other significant past medical history. Physical exam reassuring. Patient is alert and oriented, no acute distress. Easy work of breathing, lung sounds clear bilaterally. Abdomen is softly obese, nontender to palpation. History and presentation concerning for threatened . A call was placed to an [facility] birthing center, Dr. Santillan recommends that she comes straight up. Patient is agreeable with plan of care. Quality:[facility] Health Related Social Needs: No Data to Display PFSH All Active Problems Vaginal bleeding in (Acute) Elevated glucose tolerance test (Acute) Elevated 1 hour at 24 weeks, normal 3-hour. Will repeat 3-hour glucose tolerance testing at 28 weeks. (Acute) Prior with demise and current (Acute) Asthma (Chronic) Borderline personality disorder (Chronic) Major depressive disorder, recurrent (Chronic) Generalized anxiety disorder (Chronic) Obesity, Class III, BMI 40-49.9 (morbid obesity) (Chronic) PCOS (polycystic ovarian syndrome) (Chronic) Hyperlipidemia (Chronic) PTSD (post-traumatic stress disorder) (Chronic) ADHD (Chronic) Chronic low back pain (Chronic) Migraine (Chronic) Cigarette smoker (Chronic) Medical History (Updated 09/26/23 @ 13:17 by Melania Camarillo) Hidradenitis suppurativa Benzodiazepine abuse Misused xanax in her teen years per former psychiatrist Suicide attempt Multiple suicide attempts in childhood Opioid use disorder, severe, in sustained remission IV Heroin use. Was on methadone or subuxone History of premature rupture of membranes (PPROM) Surgical History S/P D&C (status post dilation and curettage) History of cholecystectomy Family History Self Adopted Social History Smoking/Tobacco Use Status: Current every day Tobacco Type: cigarettes Tobacco: How many years used: 15 Quit status: considering quitting Second Hand Exposure: Yes Smoking risk assessment performed?: Yes Alcohol Intake: current Alcohol Intake frequency: 0-2 drinks per day Alcohol type: beer, wine and hard liquor Drug use: Daily Substance use type: former substance user Date of last use: Heroin 2013, marijuana and heroin Details: states marijuana daily Adopted: Yes Household members: significant other and family Housing: house Do you need help understanding health information?: Rarely Pets and animals: Yes Pets and animals: cat(s) and dog(s) Sexually active: Yes Do you think of yourself as: straight/heterosexual Current gender identity: female What is your relationship status?: living with partner How often do you talk on the phone with friends or family?: decline to answer How often do you get together with friends or relatives?: decline to answer How often do you attend tenriism or caodaism services?: decline to answer Do you belong to any clubs or organized social groups?: no Panel score (0-1 are the most socially isolated patients): 1 What type of physical activity do you participate in: none Frequency: does not exercise Maricruz/Voodoo: No preference Special maricruz needs: No Seatbelt use: always Helmet use: No Drive intox or ride w/intox 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 Date GA/Weeks # Preg Succ Route Wgt Sex Labor Lgth Anesth esia Location Prov Compl 04/24/16 7 No 07/30/19 30 No No vaginal Female regional 04/24/21 7 No Delivery Date: 04/24/16 Last Updated by: Danielle Sifuentes CNM ETOP no complications Delivery Date: 07/30/19 Last Updated by: Danielle Graham CNM IOL for demise, [facility]. vaginal delivery with epidural. Donna Rose Delivery Date: 04/24/21 Last Updated by: Danielle Sifuentes CNM ETOP no complications
== END 2023-09-26 13:09 | disposition home or self-care (01) ==
PROVIDERS: Emergency Provider Nurse Practitioner Family; PCP Nurse Practitioner Family
DX: O46.92 Antepartum hemorrhage, unspecified, second trimester (principal); R10.9 Unspecified abdominal pain
CPT/HCPCS: 80053; 86900; 86901; 99283; 84702

== ENCOUNTER 2023-09-26 13:06 | Outpatient (CLI) | payer MEDICAID, SELFPAY ==
--- NOTE | 2023-09-26 13:59 | W.PM.OBNL1 ---
Date of service: 09/26/23 Time of Service: 13:59 Pelvic Exam Dilation: 0 Effacement (%): 0 station: -4 Cervix Position: posterior Fetus A Heart Rate Baseline: 160 Assessment and Plan Assessment and plan (1) : Status: Acute Assessment and plan: Patient presented to the emergency department with some dark, snotty vaginal bleeding after intercourse today. Baby's been moving and active. Ultrasound confirms a viable intrauterine with a heart rate of approximately 160, anterior fundal placenta and appropriate fluid. Speculum examination showed old dark blood, no discharge, no pooling, visually closed cervix. Sterile vaginal examination shows cervix to be closed and thick. Most likely postcoital bleeding. Will continue to monitor. Blood type is O+. Follow-up as scheduled tomorrow (2) Vaginal bleeding in : Status: Acute Ultrasound OB Ultrasound for presentation. (Transverse, appropriate fluid,) Indication: Bleeding in Exam complete and Ultrasound done for other reason..
--- NOTE | 2023-09-26 14:40 | W.OBNST ---
Date of service: 09/26/23 Time of Service: 14:40 NST Evaluation Reason for NST Reasons for Nonstress Test: LABOR Gestational Age Gestational Age in Weeks and Days: 24 Weeks and 6Days Test and Monitor Explained Test/Monitor Explained: Test Explained, Monitor Explained and Patient Verbalized Understanding NST Information Date on Monitor: 09/26/23 Time on Monitor: 13:15 Date off Monitor: 09/26/23 Time off Monitor: 14:20 Total Time on Monitor: 65 NST Interventions: None NST Evaluation Patient States Movement: Present FHR Baseline: 145 Variability: Moderate 6-25 bpm Note Ultrasound Done: Presentation (Transverse) Presentation Results: Transverse, fundal anterior placenta Coding for Presentation w/NST: Completed Exam. NST Note Note: Appropriate NST for 24 weeks. NST Reviewed and Verified by: Janneth Santillan
== END 2023-09-26 14:30 | disposition home or self-care (01) ==
LOC: BCD 13:10 → OBS 13:30
PROVIDERS: PCP Nurse Practitioner Family; Visit Provider Obstetrics & Gynecology
DX: O60.03 Preterm labor without delivery, third trimester; Z3A.24 24 weeks gestation of pregnancy

== ENCOUNTER 2023-10-18 05:18 | Outpatient (CLI) | payer MEDICAID, SELFPAY ==
[2023-10-18 11:30] LABS: HCT 35.9 % (36.0-46.0); MCH 31.9 pg (27.0-33.0); MCHC 33.4 % (32.0-36.0); MCV 96 fL (80-95); Platelet Count 261 10^3/uL (130-400); RBC 3.76 10^6/uL (3.93-5.22); RDW 12.4 % (11.7-14.6); RDW-SD 43.3 fL; WBC 10.74 10^3/uL (4.4-10.8)
[2023-10-18 11:40] LABS: Glucose,1 Hr (Glucola) 135 mg/dL (80-140)
== END 2023-10-18 05:19 | disposition home or self-care (01) ==
LOC: LBO 05:19
PROVIDERS: Obstetrics & Gynecology; PCP Nurse Practitioner Family; Visit Provider Obstetrics & Gynecology Gynecology
DX: Z34.93 Encounter for supervision of normal pregnancy, unspecified, third trimester (principal); R73.09 Other abnormal glucose
CPT/HCPCS: 36415; 82950; 85027

== ENCOUNTER → 2023-10-19 02:40 | Outpatient (CLI) | payer MEDICAID, SELFPAY ==
--- NOTE | 2023-10-19 07:30 | DI.US_ITS ---
Exam(s) US OB LUCAS WEIGHT EXAM: US OB LUCAS WEIGHT CLINICAL HISTORY: assess growth in high risk .o09.299. TECHNIQUE: Transabdominal obstetrical ultrasound performed. COMPARISON: US POCUS EXAM from 05/24/2023 US POCUS EXAM from 06/21/2023 US POCUS EXAM from 09/26/2023 FINDINGS:: Number of fetuses: One. position: Vertex. Placental location: Anterior no evidence of previa. BIOMETRIC DATA: BPD: 73mm = 29+ 3 weeks HC: 270mm = 29+ 3 weeks AC: 252mm = 29+ 3 weeks FL: 53 mm = 28+ 1 weeks EFW: 1323 Gms = 72% Composite Age: 29+ 1 weeks LUCI: 03 January 2024 Heart Rate: 158BPM Amniotic fluid index: 16.7 cm. Amount of fluid is visually within normal limits. IMPRESSION: size and weight are within the expected range. DATA REPOSITORY:
== END ==
PROVIDERS: PCP Nurse Practitioner Family; Visit Provider Obstetrics & Gynecology Gynecology
DX: O09.293 Supervision of pregnancy with other poor reproductive or obstetric history, third trimester (principal); O26.893 Other specified pregnancy related conditions, third trimester; F41.1 Generalized anxiety disorder; Z3A.29 29 weeks gestation of pregnancy
CPT/HCPCS: 76816

== ENCOUNTER → 2023-11-21 03:08 | Outpatient (CLI) | payer MEDICAID, SELFPAY ==
--- NOTE | 2023-11-21 07:00 | DI.US_ITS ---
Exam(s) US OB LUCAS WEIGHT EXAM: US OB LUCAS WEIGHT CLINICAL HISTORY: assess interval growth,O09.299. TECHNIQUE: Transabdominal obstetrical ultrasound was performed. COMPARISON: US US OB LUCAS WEIGHT from 10/19/2023 FINDINGS: There is a single viable intrauterine gestation with cardiac activity identified-144 bpm The fetus is presently in cephalic position . Amniotic fluid: There is a normal amount of amniotic fluid with an LUCAS of 17.7cm. Placental location: The placenta is anterior grade 2,with no evidence of placenta previa. Dating parameters place this at approximately 33 weeks and 3 days gestational age, implying LUCI of 01/06/2024. BPD measures 33 weeks and 2 days HC measures 33 weeks and 4 days AC measures the 3 weeks and 2 days FL measures 33 weeks and 3 days Estimated weight is 2177 gm-4 pounds 13 ounces Fetus is at the 57th percentile on the Hadlock scale. IMPRESSION:: Viable 3rd trimester gestation, as described above. DATA REPOSITORY:
== END ==
PROVIDERS: PCP Nurse Practitioner Family; Visit Provider Obstetrics & Gynecology Gynecology
DX: O09.293 Supervision of pregnancy with other poor reproductive or obstetric history, third trimester (principal); Z3A.33 33 weeks gestation of pregnancy
CPT/HCPCS: 76816

== ENCOUNTER 2023-11-22 05:40 | Outpatient (CLI) | payer MEDICAID, SELFPAY ==
[2023-11-22 10:25] LABS: Glucose 1 Hour 169 mg/dL
[2023-11-22 11:50] LABS: Glucose 3 Hour 91 mg/dL
== END 2023-11-22 05:41 | disposition home or self-care (01) ==
LOC: LBO 05:40
PROVIDERS: PCP Nurse Practitioner Family; Visit Provider Obstetrics & Gynecology
DX: R73.09 Other abnormal glucose (principal)
CPT/HCPCS: 36415; 82951

== ENCOUNTER 2023-12-09 01:24 | Outpatient (CLI) | payer MEDICAID, SELFPAY ==
[2023-12-09] VITALS (36 sets, daily range): BP systolic 122; BP diastolic 61; PULSE 0–105; O2SAT 93
[2023-12-09] MEDS: Lactated Ringers 500 ML 1000 ML IV (01:59)
[2023-12-09] MEDS: Normal Saline Flush 10 ML SYR (02:00)
--- NOTE | 2023-12-09 03:22 | HPE_ITS ---
Date of service: 12/09/23 Time of Service: 03:55 Assessment and Plan Assessment and plan (1) labor: Status: Acute Assessment and plan: @35.3wks with labor but no e/o imminent delivery. tracing Cat 1. Vertex by exam. GBS status unknown - PCN 5,000,000U IVB ordered. Nifedipine 20mg PO ordered. Ob hx significant for high BMI and prior 30wk demise. OB-HPI Labor/Delivery History of Present Illness Reason for Visit: NST Chief Complaint: Suspected Labor. LUCI Calculator Estimated Delivery Date Method Current WG Current Estimate 01/10/24 Ultrasound #1 35w 3d Other Estimates 11/27/23 LMP (Uncertain) 41w 5d History of Present Expected Delivery Route/Plan - MD GUALLPAB- Antonio Santiago (his first baby) BB Specific Issues/Plan 1. PCOS - treated with metformin 500 mg BID, stopped, now early 1 hour and repeat 1 hour at 28 weeks 2. BMI- 49.2(beginning of ) - early 1-hr GTT-132, repeat at 28 weeks 3. History of demise at 30 weeks and recurrent SAB - ASA started at 12 weeks - M referral to [facility] 08/19. Visit at [facility] 36. - Rec cervical length at 21, 23. - Growth U/S at 28, NST at 34, - Delivery at [facility] at 39 4. Reviewed genetic testing options. CfDNA=low risk x5 male, CF neg. AFP desired 07/19 5. Depression - no current therapy or treatment. 6. Initial UDS + THC, repeat 7. Mild polyhydramnios noted at [facility] 12/04, repeat 2 weeks at [facility]- U/S in DI ordered Narrative: Pt initially called due to not keeping food down x24hrs, having nausea, diarrhea and some lower abdominal cramping. She also said she had some bloody show. No LOF. Feeling good movement. She then said she's had some intermittent cramping for several days. Review of Systems Constitutional Constitutional: Reports system reviewed and no additional complaints, except as documented Genitourinary Genitourinary: Reports system reviewed and no additional complaints, except as documented Musculoskeletal Comments: No regular contractions PFSH All Active Problems (Updated 12/09/23 @ 03:42 by Nori Crook MD) labor (Acute) Polyhydramnios affecting (Acute) Elevated glucose tolerance test (Acute) Elevated 1 hour at 24 weeks, normal 3-hour. Will repeat 3-hour glucose tolerance testing at 28 weeks. 3-hour testing at 33-week's has elevated fasting with normal 1, 2, and 7-[id number]-[id number] dietary counseling. Hyperlipidemia (Chronic) (Acute) Prior with demise and current (Acute) Cigarette smoker (Chronic) Obesity, Class III, BMI 40-49.9 (morbid obesity) (Chronic) Generalized anxiety disorder (Chronic) Major depressive disorder, recurrent (Chronic) PTSD (post-traumatic stress disorder) (Chronic) Borderline personality disorder (Chronic) Chronic low back pain (Chronic) Asthma (Chronic) Migraine (Chronic) ADHD (Chronic) PCOS (polycystic ovarian syndrome) (Chronic) Medical History (Updated 12/09/23 @ 03:42 by Nori Crook MD) Hidradenitis suppurativa Benzodiazepine abuse Misused xanax in her teen years per former psychiatrist Suicide attempt Multiple suicide attempts in childhood Opioid use disorder, severe, in sustained remission IV Heroin use. Was on methadone or subuxone History of premature rupture of membranes (PPROM) Surgical History S/P D&C (status post dilation and curettage) History of cholecystectomy Family History Self Adopted Social History Smoking/Tobacco Use Status: Current every day Tobacco Type: cigarettes Tobacco: How many years used: 15 Quit status: considering quitting Second Hand Exposure: Yes Smoking risk assessment performed?: Yes Alcohol Intake: current Alcohol Intake frequency: 0-2 drinks per day Alcohol type: beer, wine and hard liquor Drug use: Daily Substance use type: former substance user Date of last use: Heroin 2012, marijuana and heroin Details: states marijuana daily Adopted: Yes Household members: significant other and family Housing: house Do you need help understanding health information?: Rarely Pets and animals: Yes Pets and animals: cat(s) and dog(s) Sexually active: Yes Do you think of yourself as: straight/heterosexual Current gender identity: female What is your relationship status?: living with partner How often do you talk on the phone with friends or family?: decline to answer How often do you get together with friends or relatives?: decline to answer How often do you attend baptist or mandaen services?: decline to answer Do you belong to any clubs or organized social groups?: no Panel score (0-1 are the most socially isolated patients): 1 What type of physical activity do you participate in: none Frequency: does not exercise Maricruz/Holiness: No preference Special maricruz needs: No Seatbelt use: always Helmet use: No Drive intox or ride w/intox driver license reviewing officer: No Do you feel safe at home: Yes Do you feel safe in your relationship?: Yes History History 9 Para 0 Hx # Term Pregnancies Multiple births Hx # Pregnancies 1 Ectopic pregnancies AB induced 2 Hx Number of Living Children 0 AB spontaneous 5 Past Pregnancies Del. Date GA/Weeks # Preg Succ Route Wgt Sex Labor Lgth Anesth esia Location Prov Complic 04/24/16 7 No 07/30/19 30 No No vaginal Female regional 04/24/21 7 No Delivery Date: 04/24/16 Last Updated by: Danielle Sifuentes CNM ETOP no complications Delivery Date: 07/30/19 Last Updated by: Danielle Graham CNM [facility] for demise, [facility]]. vaginal delivery with epidural. Donna Solis Delivery Date: 04/24/21 Last Updated by: Danielle Sifuentes CNM ETOP no complications Meds Allergies and Home Medications Allergies Allergy/AdvReac Type Severity Reaction Status Date / Time No Known Allergies Allergy Verified 11/21/23 09:17 Home Medications Medication Instructions Recorded Confirmed Type inhalational spacing device #1 ea 09/16/22 11/21/23 Rx (Aerochamber MV spacer) budesonide-formoterol HFA 160 2 inh inhalation BID #10.2 grams 03/16/23 11/21/23 Rx mcg-4.5 mcg/actuation aerosol inhaler (Symbicort) montelukast 10 mg tablet 10 mg PO DAILY #90 tabs 03/16/23 11/21/23 Rx (Singulair) ipratropium 0.5 mg-albuterol 3 mg 3 ml inhalation Q6H PRN wheezing 03/17/23 11/21/23 Rx (2.5 mg base)/3 mL nebulization #90 mL soln clindamycin phosphate 1 % topical 1 applic topical BID PRN 04/15/23 11/21/23 Rx solution hidradenitis flare #60 mL ondansetron 4 mg disintegrating 4 mg PO Q6H #90 tabs 05/03/23 11/21/23 Rx tablet aspirin 81 mg tablet,delayed 81 mg PO DAILY #45 tabs 06/21/23 11/21/23 Rx release Exam Physical Exam Vital signs: Pulse Pulse Ox 86 93 12/09/23 03:19 12/09/23 01:35 Vital Signs Reviewed: Yes Detailed Labor and Delivery Exam Dilation: 3 Effacement (%): 90 station: -3 Cervix position: mid Consistency: soft Juan Score: Cervical Points Exam 0 1 2 3 Dilation Closed 1-2cm 3-4 cm 5-6cm Effacement 0-30% 40-50% 60-70% 80% Consistency Firm Medium Soft Station -3 -2 -1,0 +1,+2 Position Posterior Mid Anterior Amniotic Membrane Status: Intact Fetus A Heart Rate Baseline: 130 Monitor Accelerations: 15 X 15 Monitor Decelerations: None Variability: Moderate (6-25 BPM) Presentation: Vertex Categories: Category I Detailed HEENT Exam Head: Present normocephalic and atraumatic Detailed Abdominal Exam Comments: gravid, nontender Detailed Neurological Exam Neurological: Present alert, oriented X3 and CN II-XII intact DetailedPsychiatric Exam Psychiatric: Present normal affect, normal thought process and cooperative Results Results Group Beta Strep: Not Done Blood Type: A+ Rubella Status: Immune Varicella Immunity: Immune Risk Assessment Risk for Shoulder Dystocia Historical/Initial OB: POSITIVE FOR: Pre- BMI>30; NEGATIVE FOR: Pelvic Abnormality, Previous Shoulder Dystocia or Previous Macrosomia Increased Risk?: No Risk for Pre-Eclampsia Daily Dose ASA Indicated: Yes Yes, if one or more: NEGATIVE FOR: Hx Pre-E/Gest HTN, Chronic HTN, Multiple Gestation, Pre-gestational DM, Renal Disease, Systemic Lupus or APA Syndrome Yes, if 2 or more: POSITIVE FOR: BMI>30; NEGATIVE FOR: Nulliparity, Age>= 35 yrs, >10yr btwn pregnancies, ethinicty, Mother/Sister w/ Pre-E or Previous IUGR Risk for Post- Hemorrhage Initial: NEGATIVE FOR: Multiple Gestation, Previous PPH, Known Clotting Deficiency, Grand Multiparity or Anticoagulation At Risk?: No Risks Reviewed Risks Reviewed Upon Admission: Yes
[2023-12-09] MEDS: Penicillin G POT. 5,000,000 UNITS in Normal Saline 100 ML 200 UNITS IVPB (03:54)
[2023-12-09] MEDS: NIFEdipine 10 MG CAP 20 MG PO (03:58)
[2023-12-09] MEDS: Ondansetron 4 MG/2 ML VIAL IVP (03:59)
[2023-12-09] MEDS: Normal Saline Flush 10 ML SYR IVP (03:59)
--- NOTE | 2023-12-13 14:28 | W.OBNST ---
Date of service: 12/09/23 Time of Service: 03:00 NST Evaluation Reason for NST Reasons for Nonstress Test: LABOR Gestational Age Gestational Age in Weeks and Days: 35 Weeks and 3Days Test and Monitor Explained Test/Monitor Explained: Test Explained Urine Results Urine Protein: Positive Urine Ketones: Positive Urine Glucose: Negative Urine Blood: Positive NST Information Date on Monitor: 12/09/23 Time on Monitor: 01:36 NST Interventions: PO Hydration and IV Fluids NST Evaluation FHR Baseline: 125 Variability: Moderate 6-25 bpm Accelerations: 15x15 Decelerations: None NST Results: Reactive Note Ultrasound Done: N/A. NST Note NST Reviewed and Verified by: Nori Crook
== END 2023-12-09 04:30 | disposition short-term general hospital (02) ==
LOC: OBS 01:25 → BCD 12-13 14:30
PROVIDERS: PCP Nurse Practitioner Family; Visit Provider Obstetrics & Gynecology
DX: O60.03 Preterm labor without delivery, third trimester (principal); Z3A.35 35 weeks gestation of pregnancy; O99.283 Endocrine, nutritional and metabolic diseases complicating pregnancy, third trimester; E28.2 Polycystic ovarian syndrome; O40.3XX0 Polyhydramnios, third trimester, not applicable or unspecified; O99.343 Other mental disorders complicating pregnancy, third trimester; O99.213 Obesity complicating pregnancy, third trimester; O99.513 Diseases of the respiratory system complicating pregnancy, third trimester; O99.353 Diseases of the nervous system complicating pregnancy, third trimester; O99.333 Smoking (tobacco) complicating pregnancy, third trimester; O99.810 Abnormal glucose complicating pregnancy; F99 Mental disorder, not otherwise specified; F17.210 Nicotine dependence, cigarettes, uncomplicated; E66.01 Morbid (severe) obesity due to excess calories; G43.909 Migraine, unspecified, not intractable, without status migrainosus; J45.909 Unspecified asthma, uncomplicated; F90.9 Attention-deficit hyperactivity disorder, unspecified type; F41.1 Generalized anxiety disorder; F33.9 Major depressive disorder, recurrent, unspecified; F60.3 Borderline personality disorder; F43.10 Post-traumatic stress disorder, unspecified; G89.29 Other chronic pain; M54.50 Low back pain, unspecified; E78.5 Hyperlipidemia, unspecified
CPT/HCPCS: J2405; J2540

== ENCOUNTER → 2023-12-12 03:07 | Outpatient (CLI) | payer MEDICAID, SELFPAY ==
--- NOTE | 2023-12-12 06:30 | DI.US_ITS ---
Exam(s) US OB LUCAS WEIGHT EXAM: US OB LUCAS WEIGHT CLINICAL HISTORY: check fluid,POLHYDRAMNIOS,o40.9XX0. TECHNIQUE: Transabdominal obstetrical ultrasound was performed. COMPARISON: US US OB LUCAS WEIGHT from 11/21/2023 FINDINGS: There is a single viable intrauterine gestation with cardiac activity identified-126 bpm The fetus is presently in cephalic position . Amniotic fluid: There is a normal amount of amniotic fluid with an LUCAS of 14.77cm. Placental location: The placenta is anterior grade 2,with no evidence of placenta previa. Dating parameters place this at approximately 36 weeks and 2 days gestational age, implying LUCI of 01/07/2024. BPD measures 35 weeks and 6 days HC measures 36 weeks and 0 days AC measures 37 weeks and 6 days FL measures 35 weeks and 4 days Estimated weight is 3057 gm-6 pounds 12 ounces Fetus is at the 78th percentile on the Hadlock scale. IMPRESSION:: Viable 3rd trimester gestation, as described above. DATA REPOSITORY:
== END ==
PROVIDERS: PCP Nurse Practitioner Family; Visit Provider Obstetrics & Gynecology
DX: O40.3XX1 Polyhydramnios, third trimester, fetus 1 (principal); O09.293 Supervision of pregnancy with other poor reproductive or obstetric history, third trimester; Z3A.35 35 weeks gestation of pregnancy
CPT/HCPCS: 76816

== ENCOUNTER 2023-12-12 11:26 | Outpatient (REF) | payer MEDICAID, SELFPAY | END 2023-12-12 11:27 | disposition home or self-care (01) | LOC: LBN 11:26 | PROVIDERS: PCP Nurse Practitioner Family; Visit Provider Obstetrics & Gynecology | DX: Z34.93 Encounter for supervision of normal pregnancy, unspecified, third trimester (principal); Z3A.35 35 weeks gestation of pregnancy | CPT/HCPCS: 87480; 87510; 87660 ==

== ENCOUNTER 2023-12-15 15:20 | Outpatient (REF) | payer MEDICAID, SELFPAY ==
[2023-12-15 17:25] LABS: *AMPHETAMINES SCREEN URINE Negative (Negative); *BARBITURATES SCREEN URINE Negative (Negative); *BENZODIAZEPINES SCREEN URINE Negative (Negative); Cannabinoids THC Positive (Negative); Cocaine Screen,Urine Negative (Negative); METHADONE URINE SCREEN Negative (Negative); OPIATES URINE SCREEN Negative (Negative)
[2023-12-15 17:27] LABS: Tricyclic Antidepressants Negative (Negative)
[2023-12-20 10:20] LABS: Fentanyl Scr w/Rfx Confirm Negative ng/mL (<1)
[2023-12-23 11:05] LABS: Buprenorphine Negative ng/mL (Cutoff: 5.0); Norbuprenorphine Negative ng/mL (Cutoff: 2.5)
== END 2023-12-15 15:21 | disposition home or self-care (01) ==
LOC: LBN 15:20
PROVIDERS: PCP Nurse Practitioner Family; Visit Provider Obstetrics & Gynecology Gynecology
DX: Z34.93 Encounter for supervision of normal pregnancy, unspecified, third trimester (principal); Z3A.36 36 weeks gestation of pregnancy
CPT/HCPCS: 80307; 80348

== ENCOUNTER 2023-12-18 03:25 | Inpatient (IN) | payer MEDICAID, SELFPAY ==
[2023-12-18] VITALS (21 sets, daily range): BP systolic 104–138; BP diastolic 55–76; PULSE 83–153; RESP 18–20; TEMP 36.6–36.8; O2SAT 89–98
--- NOTE | 2023-12-18 04:13 | W.PM.OBHPL1 ---
Date of service: 12/18/23 Time of Service: 04:14 Assessment and Plan Assessment and plan (1) : Status: Acute (2) Normal labor: Status: Acute Assessment and plan: Patient is a 28-year-old female 9 para 0-1-8-0 with a history of a 30-week demise. She is currently at 36 weeks and 5 days. She is known group B strep positive. She received 1 course of betamethasone during her due to labor at 35 weeks. She presents this morning with spontaneous rupture of membranes for clear fluid at approximately 0245. She was noted to be 7 cm on presentation. She has a category 1 heart rate tracing with heart tones of 150. IV was established. Laboratory studies were drawn. First dose of penicillin for group B strep prophylaxis underway. Anesthesia informed of the patient's presents for epidural placement. As of note, patient does have a BMI of nearly 50. The initial anticipation would be for her to deliver at [facility] due to BMI, and poor previous outcomes, however she is unable to be transferred due to advanced cervical dilation and active labor. The risks benefits and alternatives of delivery here versus ulcer were discussed. All questions were answered. Anticipate vaginal delivery. (3) Group beta Strep positive: Status: Acute Assessment and plan: Penicillin for group B strep prophylaxis. First dose is hanging. Delivery may be imminent prior to second dose of antibiotic OB-HPI Labor/Delivery History of Present Illness Reason for Visit: Labor Chief Complaint: Uterine Contractions; Suspected Rupture of Membranes (0245) , Associated Signs and Symptoms of Suspected ROM: Gush of fluid. LUCI Calculator Estimated Delivery Date Method Current WG Current Estimate 01/10/24 Ultrasound #1 36w 5d Other Estimates 11/27/23 LMP (Uncertain) 43w 0d Comments: Large gush of clear fluid, presents with active contractions every 2 to 3 minutes. Low pelvic pressure History of Present Expected Delivery Route/Plan - MD PINTO- Antonio Santiago (his first baby) BB Specific Issues/Plan 1. PCOS - treated with metformin 500 mg BID, stopped, now early 1 hour and repeat 1 hour at 28 weeks 2. BMI- 49.2(beginning of ) - early 1-hr GTT-132, repeat at 28 weeks 3. History of demise at 30 weeks and recurrent SAB - ASA started at 12 weeks - [facility] referral to [facility] 08/19. Visit at [facility] 36. - Rec cervical length at 21, 23. - Growth U/S at 28, NST at 34, - Delivery at [facility] at 39 4. Reviewed genetic testing options. CfDNA=low risk x5 male, CF neg. AFP desired 07/19 5. Depression - no current therapy or treatment. 6. Initial UDS + THC, repeat 7. Mild polyhydramnios noted at [facility] 12/04, repeat 2 weeks at [facility]- U/S in DI ordered 8. contractions/labor 12/09/23: cx: -> transfer to [facility]. - Recieved steroids, PCN for GBS+ and d/c after no cervical exchange administrator >48hrs Narrative: Patient presented to the center after spontaneous rupture of membranes at 2:45 AM. She has had good activity and increasing uterine contractions. She has a history of cervical dilation with transfer to [facility]. She had no cervical change and was discharged home. She is known to be group B strep positive via culture that was performed at [facility]. In theory, she had been scheduled to deliver at a tertiary care facility at 39 weeks with labor induction due to poor previous outcome and body mass index nearing 50. At this point, it is unsafe for transport. Anesthesia notified. Patient desiring epidural. Review of Systems Narrative: Painful uterine contractions. Good activity. Large gush of fluid Constitutional Constitutional: Reports as per HPI Eyes Eyes: Reports system reviewed and no additional complaints, except as documented Respiratory Respiratory: Reports system reviewed and no additional complaints, except as documented Gastrointestinal Gastrointestinal: Reports system reviewed and no additional complaints, except as documented Genitourinary Genitourinary: Reports as per HPI Musculoskeletal Musculoskeletal: Reports system reviewed and no additional complaints, except as documented Neurologic Neurologic: Reports system reviewed and no additional complaints, except as documented Psychiatric Psychiatric: Reports system reviewed and no additional complaints, except as documented PFSH All Active Problems Group beta Strep positive (Acute) Normal labor (Acute) labor (Acute) Polyhydramnios affecting (Acute) Elevated glucose tolerance test (Acute) Elevated 1 hour at 24 weeks, normal 3-hour. Will repeat 3-hour glucose tolerance testing at 28 weeks. 3-hour testing at 33-week's has elevated fasting with normal 1, 2, and 5-[id number]-[id number] dietary counseling. (Acute) Prior with demise and current (Acute) Asthma (Chronic) Borderline personality disorder (Chronic) Major depressive disorder, recurrent (Chronic) Generalized anxiety disorder (Chronic) Obesity, Class III, BMI 40-49.9 (morbid obesity) (Chronic) PCOS (polycystic ovarian syndrome) (Chronic) Hyperlipidemia (Chronic) PTSD (post-traumatic stress disorder) (Chronic) ADHD (Chronic) Chronic low back pain (Chronic) Migraine (Chronic) Cigarette smoker (Chronic) Medical History (Updated 12/18/23 @ 04:34 by Janneth Santillan DO) Hidradenitis suppurativa Benzodiazepine abuse Misused xanax in her teen years per former psychiatrist Suicide attempt Multiple suicide attempts in childhood Opioid use disorder, severe, in sustained remission IV Heroin use. Was on methadone or subuxone History of premature rupture of membranes (PPROM) Surgical History S/P D&C (status post dilation and curettage) History of cholecystectomy Family History Self Adopted Social History Smoking/Tobacco Use Status: Current every day Tobacco Type: cigarettes Tobacco: How many years used: 15 Quit status: considering quitting Second Hand Exposure: Yes Smoking risk assessment performed?: Yes Alcohol Intake: current Alcohol Intake frequency: 0-2 drinks per day Alcohol type: beer, wine and hard liquor Drug use: Daily Substance use type: former substance user Date of last use: Heroin 2013, marijuana and heroin Details: states marijuana daily Adopted: Yes Household members: significant other and family Housing: house Do you need help understanding health information?: Rarely Pets and animals: Yes Pets and animals: cat(s) and dog(s) Sexually active: Yes Do you think of yourself as: straight/heterosexual Current gender identity: female What is your relationship status?: living with partner How often do you talk on the phone with friends or family?: decline to answer How often do you get together with friends or relatives?: decline to answer How often do you attend buddhism or buddhist services?: decline to answer Do you belong to any clubs or organized social groups?: no Panel score (0-1 are the most socially isolated patients): 1 What type of physical activity do you participate in: none Frequency: does not exercise Maricruz/Yazdanism: No preference Special maricruz needs: No Seatbelt use: always Helmet use: No Drive intox or ride w/intox cart driver: No Do you feel safe at home: Yes Do you feel safe in your relationship?: Yes History History 9 Para 0 Hx # Term Pregnancies Multiple births Hx # Pregnancies 1 Ectopic pregnancies AB induced 2 Hx Number of Living Children 0 AB spontaneous 5 Past Pregnancies Del. Date GA/Weeks # Preg Succ Route Wgt Sex Labor Lgth Anesthesia Location Prov Complic 04/24/16 7 No 07/30/19 30 No No vaginal Female regional 04/24/21 7 No Delivery Date: 04/24/16 Last Updated by: Danielle Sifuentes CNM ETOP no complications Delivery Date: 07/30/19 Last Updated by: Danielle Graham CNM IOL for demise, [facility]. vaginal delivery with epidural. Donna Solis Delivery Date: 04/24/21 Last Updated by: Danielle Sifuentes CNM ETOP no complications Meds Allergies and Home Medications Allergies Allergy/AdvReac Type Severity Reaction Status Date / Time No Known Allergies Allergy Verified 12/15/23 13:52 Home Medications Medication Instructions Recorded Confirmed Type inhalational spacing device #1 ea 09/16/22 12/12/23 Rx (Aerochamber MV spacer) budesonide-formoterol HFA 160 2 inh inhalation BID #10.2 grams 03/16/23 12/12/23 Rx mcg-4.5 mcg/actuation aerosol inhaler (Symbicort) montelukast 10 mg tablet 10 mg PO DAILY #90 tabs 03/16/23 12/12/23 Rx (Singulair) ipratropium 0.5 mg-albuterol 3 mg 3 ml inhalation Q6H PRN wheezing 03/17/23 12/12/23 Rx (2.5 mg base)/3 mL nebulization #90 mL soln clindamycin phosphate 1 % topical 1 applic topical BID PRN 04/15/23 12/12/23 Rx solution hidradenitis flare #60 mL ondansetron 4 mg disintegrating 4 mg PO Q6H #90 tabs 05/03/23 12/12/23 Rx tablet aspirin 81 mg tablet,delayed 81 mg PO DAILY #45 tabs 06/21/23 12/12/23 Rx release metronidazole 500 mg tablet 500 mg PO BID #14 tabs 12/12/23 Rx Exam Physical Exam Vital Signs Reviewed: Yes Constitutional Constitutional: no acute distress Detailed Labor and Delivery Exam Dilation: 7 Effacement (%): 100 station: 0 Position: OA Cervix position: anterior Yoo Score: Cervical Points Exam 0 1 2 3 Dilation Closed 1-2cm 3-4 cm 5-6cm Effacement 0-30% 40-50% 60-70% 80% Consistency Firm Medium Soft Station -3 -2 -1,0 +1,+2 Position Posterior Mid Anterior YOO Score(Cervical Ripeness Score): 10 Amniotic Membrane Status: Ruptured Rupture Method: Spontaneous Amniotic Fluid: Clear Pooling: Positive Contraction Frequency(min): 3 Contraction Intensity: Moderate/Strong Fetus A Heart Rate Baseline: 150 Monitor Accelerations: 15 X 15 Monitor Decelerations: None Variability: Moderate (6-25 BPM) Presentation: Cephalic Categories: Category I Time of Membrane Rupture: 02:45 HEENT Exam HEENT Exam: Normal Respiratory Exam Respiratory Exam: Normal Cardiovascular Exam Cardiovascular Exam: Normal Abdominal Exam Abdominal Exam: Normal Extremities Exam Extremities Exam: Normal Neurological Exam Neurological Exam: Normal Psychiatric Exam Psychiatric Exam: Normal Results Results Group Beta Strep: Positive Rubella Status: Immune Varicella Immunity: Immune Risk Assessment Risk for Shoulder Dystocia Historical/Initial OB: POSITIVE FOR: Pre- BMI>30; NEGATIVE FOR: Pelvic Abnormality, Previous Shoulder Dystocia or Previous Macrosomia Delivery Plan @ 36wks: Vaginal delivery Risk for Pre-Eclampsia Yes, if one or more: NEGATIVE FOR: Hx Pre-E/Gest HTN, Chronic HTN, Multiple Gestation, Pre-gestational DM, Renal Disease, Systemic Lupus or APA Syndrome Yes, if 2 or more: POSITIVE FOR: BMI>30; NEGATIVE FOR: Nulliparity, Age>= 35 yrs, >10yr btwn pregnancies, ethinicty, Mother/Sister w/ Pre-E or Previous IUGR Risk for Post- Hemorrhage Initial: NEGATIVE FOR: Multiple Gestation, Previous PPH, Known Clotting Deficiency, Grand Multiparity or Anticoagulation Counseled re: Active Management: Yes Date/Initials: margarita, 12/18/2023 Risks Reviewed Risks Reviewed Upon Admission: Yes
[2023-12-18 04:23] LABS: HCT 35.3 % (36.0-46.0); HGB 11.9 g/dL (11.2-15.7); MCH 31.7 pg (27.0-33.0); MCHC 33.7 % (32.0-36.0); MCV 94 fL (80-95); MPV 9.8 fL (8.0-11.0); Platelet Count 327 10^3/uL (130-400); RBC 3.75 10^6/uL (3.93-5.22); RDW 13.1 % (11.7-14.6); RDW-SD 45.1 fL; WBC 16.26 10^3/uL (4.4-10.8)
[2023-12-18] MEDS: Penicillin G POT. 5,000,000 UNITS in Normal Saline 100 ML 200 UNITS IVPB (04:26)
[2023-12-18] MEDS: Normal Saline Flush 10 ML SYR IVP (04:28)
--- NOTE | 2023-12-18 04:32 | ANES.PREOP_ITS ---
Meds Allergies and Home Medications Allergies Allergy/AdvReac Type Severity Reaction Status Date / Time No Known Allergies Allergy Verified 12/15/23 13:52 Home Medication Medication Instructions Recorded inhalational spacing device #1 ea 09/16/22 (Aerochamber MV spacer) budesonide-formoterol HFA 160 2 inh inhalation BID #10.2 grams 03/16/23 mcg-4.5 mcg/actuation aerosol inhaler (Symbicort) montelukast 10 mg tablet 10 mg PO DAILY #90 tabs 03/16/23 (Singulair) ipratropium 0.5 mg-albuterol 3 mg 3 ml inhalation Q6H PRN wheezing 03/17/23 (2.5 mg base)/3 mL nebulization #90 mL soln clindamycin phosphate 1 % topical 1 applic topical BID PRN 04/15/23 solution hidradenitis flare #60 mL ondansetron 4 mg disintegrating 4 mg PO Q6H #90 tabs 05/03/23 tablet aspirin 81 mg tablet,delayed 81 mg PO DAILY #45 tabs 06/21/23 release metronidazole 500 mg tablet 500 mg PO BID #14 tabs 12/12/23 Current Visit Medications: Current Medications Generic Name Dose Route Start Last Admin Trade Name Freq PRN Reason Stop Dose Admin Fentanyl/Ropivacaine 200 ml 12/18/23 04:15 Fentanyl/Ropivacaine 2 Mcg/Ml And 0.1% 200 Ml Cadd Cassette EP DIRECTED CHRISTINA Penicillin G Potassium 5,000, 100 mls @ 200 mls/hr 12/18/23 04:04 12/18/23 04:26 000 units/ Sodium Chloride IVPB 12/18/23 04:33 200 mls/hr NOW ONE Administration Penicillin G Potassium 3,000, 50 mls @ 100 mls/hr 12/18/23 08:00 000 units/ Sodium Chloride IVPB Q4H [facility] IV Miscellaneous Supplies 1 each 12/18/23 04:15 Iv Access IV DIRECTED CHRISTINA IV Miscellaneous Supplies 1 each 12/18/23 04:15 Iv Access IV DIRECTED CHRISTINA Sodium Chloride 0 ml 12/18/23 04:03 12/18/23 04:28 Normal Saline Flush 10 Ml Syr IVP 10 ml PRN PRN Administration Sodium Chloride 0 ml 12/18/23 08:30 Normal Saline Flush 10 Ml Syr IVP BID CHRISTINA Sodium Chloride 0 ml 12/18/23 04:03 Normal Saline 10 Ml Vial IJ DIRECTED PRN Sodium Chloride 0 ml 12/18/23 04:04 Normal Saline Flush 10 Ml Syr IVP PRN PRN Sodium Chloride 0 ml 12/18/23 08:30 Normal Saline Flush 10 Ml Syr IVP BID CHRISTINA Sodium Chloride 0 ml 12/18/23 04:04 Normal Saline 10 Ml Vial IJ DIRECTED PRN PFSH Active Problems Active Problems: Problem Status Onset Code labor O60.00 Polyhydramnios affecting O40.9XX0 Elevated glucose tolerance test R73.09 Z34.90 Prior with demise and current O09.299 Asthma J45.909 Borderline personality disorder F60.3 Major depressive disorder, recurrent F33.9 Generalized anxiety disorder F41.1 Obesity, Class III, BMI 40-49.9 (morbid obesity) E66.01 PCOS (polycystic ovarian syndrome) E28.2 Hyperlipidemia E78.5 PTSD (post-traumatic stress disorder) F43.10 ADHD F90.9 Chronic low back pain M54.50, G89.29 Migraine G43.909 Cigarette smoker F17.210 Medical History Medical History (Updated 12/18/23 @ 04:34 by Janneth Santillan DO) Hidradenitis suppurativa Benzodiazepine abuse Misused xanax in her teen years per former psychiatrist Suicide attempt Multiple suicide attempts in childhood Opioid use disorder, severe, in sustained remission IV Heroin use. Was on methadone or subuxone History of premature rupture of membranes (PPROM) Surgical History Surgical History S/P D&C (status post dilation and curettage) History of cholecystectomy Tobacco Smoking/Tobacco Use Status: Current every day Tobacco Type: cigarettes Passive smoking exposure: Yes Second hand exposure: Yes Alcohol Alcohol Intake: current Alcohol intake frequency: 0-2 drinks per day Alcohol type: beer, wine and hard liquor Substance Use Substance use: Daily Substance use type: former substance user Date of last use: Heroin 2012, marijuana and heroin Details: states marijuana daily Prental History History 2 9 Para 0 Hx # Term Pregnancies Multiple births Hx # Pregnancies 1 Ectopic pregnancies AB induced 2 Hx Number of Living Children 0 AB spontaneous 5 Past Pregnancies Del. Date GA/Weeks # Preg Succ Route Wgt Sex Labor Lgth Anesth esia Location Prov Complic 04/24/16 7 No 07/30/19 30 No No vaginal Female regional 04/24/21 7 No Delivery Date: 04/24/16 Last Updated by: Danielle Sifuentes CNM ETOP no complications Delivery Date: 07/30/19 Last Updated by: Danielle Graham CNM IOL for demise, [facility]. vaginal delivery with epidural. Donna Solis Delivery Date: 04/24/21 Last Updated by: Danielle Sifuentes CNM ETOP no complications Vital Signs and Lab Results Vital Signs Most Recent Vital Signs in EMR: Most Recent Vital Signs Pulse BP 88 113/72 12/18/23 04:26 12/18/23 04:26 Lab Results 12/18/23 04:10 Blood Type / Crossmatch: 2 No Data to Display Complete Blood Count: 2 White Blood Count 16.26 10^3/uL (4.4-10.8) H 12/18/23 04:10 Red Blood Count 3.75 10^6/uL (3.93-5.22) L 12/18/23 04:10 Hemoglobin 11.9 g/dL (11.2-15.7) 12/18/23 04:10 Hematocrit 35.3 % (36.0-46.0) L 12/18/23 04:10 Platelet Count 327 10^3/uL (130-400) 12/18/23 04:10 Complete Metabolic Panel: 2 No Data to Display Liver Function Panel: 2 No Data to Display Coagulation Panel: 2 No Data to Display Cardiac Panel: 2 No Data to Display Arterial Blood Gas: 2 No Data to Display Venous Blood Gas: 2 No Data to Display Pancreas Panel: 2 No Data to Display Thyroid Panel: 2 No Data to Display Infectious Disease: 2 No Data to Display Blood Cultures: 2 No Data to Display Toxicology Panel: 2 Urine Amphetamines Screen Negative (Negative) 12/15/23 14:30 Urine Benzodiazepines Screen Negative (Negative) 12/15/23 14:3 0 Urine Barbiturates Screen Negative (Negative) 12/15/23 14:30 Urine Cocaine Screen Negative (Negative) 12/15/23 14:30 Urine Methadone Screen Negative (Negative) 12/15/23 14:30 Urine Opiates Screen Negative (Negative) 12/15/23 14:30 Ur Tricyclic Antidepressants Screen Negative (Negative) 14:30 Ur Tetrahydrocannabinol (THC) Scrn Positive (Negative) A 12/14 14:30 Panel: 2 No Data to Display Anesthesia Assessment and Plan Anesthesia History Personal History: No History of Anesthesia Complications Family History: No Family History of Anesthesia Complications Exercise Tolerance Exercise Tolerance: Metabolic Equivalents>4 Implantable Cardiac Device Does patient have a Pacemaker or an ICD?: No Airway Exam Known Difficult Airway: No Mallampati Class: 2 Mouth Opening: Normal (> 3cm) Thyromental Distance: Greater than 3 cm Neck Range of Motion: Full ROM Neck Circumference: Normal Teeth Condition: Normal Dentition ASA Classification ASA Score: ASA 3 Emergency Case?: No NPO Status NPO Status: Full Stomach Status Status: Confirmed Anesthesia Plan Resuscitation Status: Full Code Anesthesia Technique: Epidural Anesthesia Airway Planned: Natural Airway Pain Management: Epidural Monitors Used: Standard Monitors Preoperative Comments:: 28 yo female requesting epidural. Sig PMHx: asthma, anxiety/borderline/depression, BMI ~50, low back pain, smoker, occ EtOH, former methadone/suboxone. plt 327 Previous Anes: - wrist excision, prop, dexmed, natural airway, no issues.
[2023-12-18] MEDS: Oxytocin/Normal Saline 30 UNIT/500 ML BAG 95 UNITS IV (04:50)
--- NOTE | 2023-12-18 04:54 | PLAC_PTH ---
PATIENT: Elizabeth Streeter LOC: OBS U#:[id number] AGE/SX: 28/F ROOM: OBS.301 RE12/18/[address]: Janneth Santillan DO : 1995 BED: A DIS: 12/20/2023 SPEC #: [id number] RECD: 12/20/23 12:58 STATUS: SOUT REQ #: [id number] VIN: 12/18/23 04:[address]: Janneth Santillan DEPT: Surgical Specimen RECD BY: Nataliia Woodson ENTERED: 12/20/23 12:58 SP TYPE: PLAC OTHR DR: ADRIANA Ken Tissues: 1 - PLACENTA (3RD TRIMESTER) Procedures: GROSS AND MICRO LEVEL 5 Comments: [id number]
--- NOTE | 2023-12-18 05:22 | OBVDS_ITS ---
Date of service: 12/18/23 Time of Service: 05:22 OB Labor/ Delivery Information Baby A Delivery Delivery Method: Spontaneaous Presentation: Cephalic Cord Description-Baby A: 3 Vessels Amniotic Fluid: Clear Estimated Blood Loss: 100 Delivery Outcome: Liveborn Note: After presentation to the center at 7 cm with rupture of fluid for clear amniotic fluid she rapidly progressed to the point that she was completely dilated. She did receive 1 dose of penicillin for group B strep prophylaxis. vertex was at the perineum and with 2 maternal pushes, male was delivered over an intact perineum. There is no evidence of nuchal cord and the shoulders followed spontaneously. Three-vessel cord was noted clamped x 2 and cut after delayed cord clamping. Cord blood sample was obtained. The placenta delivered spontaneously and was noted to be intact. There was a second-degree perineal laceration and a right labial first-degree laceration both which were infiltrated with lidocaine and repaired with 3-0 Vicryl suture. Lacerations were noted to be hemostatic. Uterus was firm after delivery and mom and baby are in stable condition with appropriate bonding. Patient declines breast- feeding. Will bottlefeed. Providers Doctor: Janneth Santillan Nurse: Mitzy Riggins Nurse: Chayo Craft Labor/Delivery Information Number of Babies in Womb: 1 Steroids Given: None Reason Steroids Not Administered: N/A Group Beta Strep: Positive Antibiotics Administered: Yes Number of Doses of Antibiotics: 1 Rubella Status: Immune Varicella Immunity: Immune Maternal Complications: Precipitous Labor(<3hrs) Shoulder Dystocia: No Stages of Labor Onset of Labor Date: 12/18/23 Onset of Labor Time: 02:45 Complete Dilatation Date: 12/18/23 Complete Dilatation Time: 04:45 Labor - Stage 1 Duration: 2 hours and 0 minutes ROM Baby A: 12/18/23 ROM Baby A: 02:45 ROM Total Time- Baby A: [id number] Infant Delivery Date-Baby A: 12/18/23 Delivery Time-Baby A: 04:48 Labor Stage 2 Duration: 3 minutes Placenta Delivery Date-Baby A: 12/18/23 Placenta Delivery Time-Baby A: 04:54 Labor-Stage 3 Duration: 6 minutes Total Length of Labor-Baby A: 2 hours and 3 minutes Placenta Cultured: Yes Placenta Status: Delivered Baby A Infant Gender: Male Gestational Status: Late (34-36.6 wks) Gestational Age in Weeks/Days: 36 Weeks and 5 Days Score-1 Minute Interval(Baby A) Heart Rate-1 minute: 100 BPM or Greater Respiratory Effort- 1 minute: Spontaneous/Strong Cry Muscle Tone-1 minute: Active Movement Reflex Response-1 minute: Prompt Response Color-1 minute: Bluish Hands or Feet Total Score-1 minute: 9 Score-5 Minute Interval(Baby A) Heart Rate- 5 minute: 100 BPM or Greater Respiratory Effort-5 minute: Spontaneous/Strong Cry Muscle Tone-5 minute: Active Movement Reflex Response-5 minute: Prompt Response Color-5 minute: Bluish Hands or Feet Total Score- 5 minute: 9
[2023-12-18] MEDS: Ibuprofen 600 MG TAB PO ×3 (06:03→19:41)
[2023-12-18] MEDS: Acetaminophen 325 MG TAB 650 MG PO ×4 (06:04→23:25)
[2023-12-18] MEDS: Nicotine 21 MG/24 HR PATCH TD (11:40)
[2023-12-18] MEDS: Hamamelis Leaf/Glycerin 100 EACH BOX PR (12:04)
[2023-12-18] MEDS: Dibucaine 1% 28 GM TUBE TP (12:05)
[2023-12-18] MEDS: Docusate Sodium 100 MG CAP PO ×2 (12:06→19:48)
--- NOTE | 2023-12-18 22:23 | NUR.NOTE ---
Nursing Note: Pt called this RN into room to report cramping pain is creeping up to a 4 or 5 again. Reviewed timing of pain meds and gave pt a hot pack for cramping
[2023-12-19] MEDS: Acetaminophen 325 MG TAB 650 MG PO ×3 (04:04→19:54)
[2023-12-19] MEDS: Ibuprofen 600 MG TAB PO ×3 (04:04→19:54)
[2023-12-19 04:10] VITALS: BP 99/65; PULSE 94; RESP 16; TEMP 36.6; O2SAT 96
[2023-12-19 07:20] LABS: HCT 32.7 % (36.0-46.0); HGB 11.1 g/dL (11.2-15.7); MCHC 33.9 % (32.0-36.0); MCV 94 fL (80-95); MPV 10.1 fL (8.0-11.0); Platelet Count 313 10^3/uL (130-400); RBC 3.47 10^6/uL (3.93-5.22); RDW 13.2 % (11.7-14.6); RDW-SD 45.1 fL; WBC 11.08 10^3/uL (4.4-10.8)
[2023-12-19 07:50] VITALS: BP 102/70; PULSE 82; RESP 16; TEMP 36.4; O2SAT 98
[2023-12-19] MEDS: Docusate Sodium 100 MG CAP PO ×2 (07:52→19:54)
--- NOTE | 2023-12-19 09:18 | W.PM.OBPNV1 ---
Date of service: 12/19/23 Time of Service: 09:18 Assessment and Plan Assessment and plan (1) (normal spontaneous vaginal delivery): Status: Acute Assessment and plan: day #1 status post spontaneous vaginal delivery. Doing well. Group B strep assistive, baby treated x 1 dose due to precipitous labor. Continue to monitor mom and baby for the next 24 hours. circumcision was performed today at patient's request. Bottlefeeding without difficulty. Lochia is physiologic. Mood is appropriate. Anticipate discharge home 12/19 if stable and baby discharged. All questions answered. Subjective Subjective Interval history: Patient seen and examined this morning. Doing well. Bottlefeeding. Resting comfortably. circumcision at patient's request. Patient's Mood: Appropriate [place] baby status: Doing well and Strong Bonding Observed feeding status: Exclusively formula feeding Exam Physical Exam Vital signs: Temp Pulse Resp BP Pulse Ox 97.5 F L 82 16 102/70 98 12/19/23 07:50 12/19/23 07:50 12/19/23 07:50 12/19/23 07:50 12/19/23 07:50 Vital Signs Reviewed: Yes Constitutional Comments: No acute distress. Doing well. Pain controlled. Respiratory Exam Respiratory Exam: Normal Cardiovascular Exam Cardiovascular Exam: Normal Abdominal Exam Comments: Abdomen soft, nontender, active bowel sounds Fundal Exam Fundus: Below Umbilicus and Firm Extremities Exam Extremity Exam: Normal; negative Calf Tenderness Skin Exam Skin Exam: Normal Neurological Exam Neurological Exam: Normal Psychiatric Exam Psychiatric Exam: Normal Results Hemoglobin/Hematocrit: Hgb 11.1 g/dL (11.2-15.7) L 12/19/23 07:00 Hct 32.7 % (36.0-46.0) L 12/19/23 07:00 Abnormal Lab Findings: Abnormal Labs 12/18/23 12/19/23 04:10 07:00 WBC 16.26 H 11.08 H RBC 3.75 L 3.47 L Hgb 11.1 L Hct 35.3 L 32.7 L
[2023-12-19] MEDS: Nicotine 21 MG/24 HR PATCH TD ×2 (10:04→18:39)
[2023-12-19 19:30] VITALS: BP 111/74; PULSE 93; RESP 16; TEMP 36.9
[2023-12-20] MEDS: Acetaminophen 325 MG TAB 650 MG PO (06:53)
--- NOTE | 2023-12-20 07:16 | W.PM.OBPNV1 ---
Date of service: 12/20/23 Time of Service: 07:16 Assessment and Plan Assessment and plan (1) (normal spontaneous vaginal delivery): Status: Acute Assessment and plan: day #2 status post normal spontaneous vaginal delivery. Doing well. No issues or concerns. Bottlefeeding without difficulty. Precautions given. Follow-up in the office in 2 and 6 weeks. Subjective Subjective Interval history: Patient seen and examined this morning. Doing great. Discussed discharge, and expectations. Bottlefeeding without difficulty. Anticipating using oral contraceptives for contraceptive management. Offered options. Will be seen in the office in 2 weeks Patient's Mood: Joyful baby status: Doing well and Bottle feeding well feeding status: Exclusively formula feeding Exam Physical Exam Vital signs: Temp Pulse Resp BP Pulse Ox 98.4 F 93 H 16 111/74 98 12/19/23 19:30 12/19/23 19:30 12/19/23 19:30 12/19/23 19:30 12/19/23 07:50 Vital Signs Reviewed: Yes Constitutional Constitutional: no acute distress HEENT Exam HEENT Exam: Normal Respiratory Exam Respiratory Exam: Normal Cardiovascular Exam Cardiovascular Exam: Normal Abdominal Exam Comments: Soft, nontender Fundal Exam Fundus: Below Umbilicus and Firm Extremities Exam Extremity Exam: Normal; negative Calf Tenderness Neurological Exam Neurological Exam: Normal Psychiatric Exam Psychiatric Exam: Normal Results Hemoglobin/Hematocrit: Hgb 11.1 g/dL (11.2-15.7) L 12/19/23 07:00 Hct 32.7 % (36.0-46.0) L 12/19/23 07:00 Abnormal Lab Findings: Abnormal Labs 12/18/23 12/19/23 04:10 07:00 WBC 16.26 H 11.08 H RBC 3.75 L 3.47 L Hgb 11.1 L Hct 35.3 L 32.7 L
--- NOTE | 2023-12-20 07:22 | DSE_ITS ---
Date of service: 12/20/23 Time of Service: 07:22 DS: Diagnosis Discharge Diagnosis (1) (normal spontaneous vaginal delivery): Status: Acute Asessment and Plan: day #2 status postnormal spontaneous vaginal delivery at 36 weeks and 5 days. Discharge home. Follow-up in the office in 2 and 6 weeks. Discharge Plan Disposition Patient Disposition: Home Condition: Good Discharge Details Reason For Visit: Labor Admit Date/Time: 12/18/23 04:03 Admit Provider: Janneth Santillan Attending Provider: Janneth Santillan [facility] Hospital Course: Patient presented to the center in spontaneous labor, after spontaneous rupture of membranes and noted to be 7 cm. She had a precipitous labor and delivery. She received 1 dose of penicillin for group B strep prophylaxis. She used nitrous oxide for pain control and went on to deliver a viable male infant. She had an uncomplicated course and was discharged home day #2 ambulating, tolerating regular diet and oral pain medication and bottlefeeding her male Gregory. was circumcised prior to discharge. Home Meds and New Rx's Prescriptions: New ibuprofen 600 mg Tablet 600 mg PO Q6H PRN PRNQty: 60 0RF Continued montelukast [Singulair] 10 mg tablet 10 mg PO DAILY Qty: 90 3RF budesonide-formoterol [Symbicort] 160-4.5 mcg/actuation HFA aerosol inhaler 2 inh inhalation BID Qty: 10.2 3RF Rx Instructions: 2 puffs twice a day and may use 1-2 puffs q4-6hrs as needed as for shortness of breath. Max 12 inhalations per day ipratropium-albuterol 0.5 mg-3 mg(2.5 mg base)/3 mL solution for nebulization 3 ml inhalation Q6H PRN (Reason: wheezing) Qty: 90 3RF Discontinued ondansetron 4 mg tablet,disintegrating 4 mg PO Q6H Qty: 90 0RF No Action (DME) Aerochamber MV Spacer See Rx Instructions .Route Qty: 1 0RF Rx Instructions: As directed Discharge Instructions Additional Instructions: Follow-up with Dr. Santillan in 2 and 6 weeks Stand Alone Forms: BC Post Vaginal Deliver Activity:: Pelvic rest Equipment/Supplies:: No Equipment Needed Diet:: As Tolerated OB:DS Summary Summary Vaginal Delivery Method: Spontaneaous Episiotomy Description: None Laceration Description: Perineal Laceration Extension: Second Degree Contraception Discussed Contraception Discussed: Yes Contraceptive Plan: Control Pill/Patch, [place] Gender-Baby A: Male weight: 6 lb 12.291 oz Status at Discharge Functional status at discharge: independent ambulation Overall status at discharge: patient is progressing back to baseline Mental Status: mental status grossly normal Speech and Movement: speech and movement normal Mood: congruent mood Affect: normal affect Quality:SDOH Health Related Social Needs: No Data to Display Exam Physical Exam Vital signs: Temp Pulse Resp BP Pulse Ox 98.4 F 93 H 16 111/74 98 12/19/23 19:30 12/19/23 19:30 12/19/23 19:30 12/19/23 19:30 12/19/23 07:50 Narrative: See physical exam from progress note dated 12/20/2023 [facility] All Active Problems (normal spontaneous vaginal delivery) (Acute) Precipitous vaginal delivery at 36 weeks 5 days after spontaneous rupture of membranes. Male infant Gregory 12/18/2023 Group beta Strep positive (Acute) Elevated glucose tolerance test (Acute) Elevated 1 hour at 24 weeks, normal 3-hour. Will repeat 3-hour glucose tolerance testing at 28 weeks. 3-hour testing at 33-week's has elevated fasting with normal 1, 2, and 7-fcyl-hdqkstuka dietary counseling. (Acute) Prior with demise and current (Acute) Asthma (Chronic) Borderline personality disorder (Chronic) Major depressive disorder, recurrent (Chronic) Generalized anxiety disorder (Chronic) Obesity, Class III, BMI 40-49.9 (morbid obesity) (Chronic) PCOS (polycystic ovarian syndrome) (Chronic) Hyperlipidemia (Chronic) PTSD (post-traumatic stress disorder) (Chronic) ADHD (Chronic) Chronic low back pain (Chronic) Migraine (Chronic) Cigarette smoker (Chronic) Medical History (Updated 12/19/23 @ 09:19 by Janneth Santillan DO) Hidradenitis suppurativa Benzodiazepine abuse Misused xanax in her teen years per former psychiatrist Suicide attempt Multiple suicide attempts in childhood Opioid use disorder, severe, in sustained remission IV Heroin use. Was on methadone or subuxone History of premature rupture of membranes (PPROM) Surgical History S/P D&C (status post dilation and curettage) History of cholecystectomy Family History Self Adopted Social History Smoking/Tobacco Use Status: Current every day Tobacco Type: cigarettes Tobacco: How many years used: 15 Quit status: considering quitting Second Hand Exposure: Yes Smoking risk assessment performed?: Yes Alcohol Intake: former Drug use: Daily Substance use type: former substance user Date of last use: Heroin 2013, marijuana and heroin Details: states marijuana daily Adopted: Yes Household members: significant other and family Housing: house Do you need help understanding health information?: Rarely Pets and animals: Yes Pets and animals: cat(s) and dog(s) Sexually active: Yes Do you think of yourself as: straight/heterosexual Current gender identity: female What is your relationship status?: living with partner How often do you talk on the phone with friends or family?: decline to answer How often do you get together with friends or relatives?: decline to answer How often do you attend synagogue or methodist services?: decline to answer Do you belong to any clubs or organized social groups?: no Panel score (0-1 are the most socially isolated patients): 1 What type of physical activity do you participate in: none Frequency: does not exercise Maricruz/Oriental Orthodox: No preference Special maricruz needs: No Seatbelt use: always Helmet use: No Drive intox or ride w/intox 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 Date GA/Weeks # Preg Succ Route Wgt Sex Labor Lgth Anesth esia Location Prov Complic 04/24/16 7 No 07/30/19 30 No No vaginal Female regional 04/24/21 7 No Delivery Date: 04/24/16 Last Updated by: Danielle Sifuentes CNM ETOP no complications Delivery Date: 07/30/19 Last Updated by: Danielle Graham CNM IOL for demise, [facility]. vaginal delivery with epidural. Donna Solis Delivery Date: 04/24/21 Last Updated by: Danielle Sifuentes CNM ETOP no complications DS: Data Vitals/I&O Vitals and I&O: Vital Signs Temperature 98.4 F 12/19/23 19:30 Temperature Source Oral 12/19/23 19:30 Pulse 93 H 12/19/23 19:30 Pulse Rhythm Regular 12/19/23 19:30 Respiratory Rate 16 12/19/23 19:30 Blood Pressure 111/74 12/19/23 19:30 Blood Pressure Mean 86 12/19/23 19:30 Pulse Oximetry 98 12/19/23 07:50 Oxygen Delivery Method Room Air 12/18/23 04:28 Oxygen Flow Rate 0 12/18/23 04:28 Pain Level 3 12/19/23 12:19 Comment Patient has long nails, switched to right hand 12/18/23 10:40 Data Completed and Pending Labs on day of discharge: Labs from last 24 hours 12/19/23 07:00 WBC 11.08 H RBC 3.47 L Hgb 11.1 L Hct 32.7 L MCV 94 MCH 32.0 MCHC 33.9 RDW 13.2 Plt Count 313 MPV 10.1
[2023-12-20] MEDS: Ibuprofen 600 MG TAB PO (07:51)
[2023-12-20] MEDS: Dibucaine 1% 28 GM TUBE TP (07:53)
[2023-12-20] MEDS: Hamamelis Leaf/Glycerin 100 EACH BOX PR (07:53)
[2023-12-20 08:00] VITALS: BP 118/77; PULSE 77; RESP 17; TEMP 36.9; O2SAT 98
== END 2023-12-20 11:15 | disposition home or self-care (01) | DRG 806 ==
PROVIDERS: Admitting Provider Obstetrics & Gynecology; PCP Nurse Practitioner Family; Visit Provider Obstetrics & Gynecology
DX: O60.14X0 Preterm labor third trimester with preterm delivery third trimester, not applicable or unspecified (principal); F33.9 Major depressive disorder, recurrent, unspecified; Z37.0 Single live birth; O99.354 Diseases of the nervous system complicating childbirth; O99.324 Drug use complicating childbirth; O99.824 Streptococcus B carrier state complicating childbirth; Z3A.36 36 weeks gestation of pregnancy; O99.284 Endocrine, nutritional and metabolic diseases complicating childbirth; E28.2 Polycystic ovarian syndrome; O99.344 Other mental disorders complicating childbirth; O40.3XX0 Polyhydramnios, third trimester, not applicable or unspecified; O99.52 Diseases of the respiratory system complicating childbirth; O99.214 Obesity complicating childbirth; E66.01 Morbid (severe) obesity due to excess calories; F41.1 Generalized anxiety disorder; G43.909 Migraine, unspecified, not intractable, without status migrainosus; E78.5 Hyperlipidemia, unspecified; F43.10 Post-traumatic stress disorder, unspecified; F90.9 Attention-deficit hyperactivity disorder, unspecified type; J45.909 Unspecified asthma, uncomplicated; F60.3 Borderline personality disorder; G89.29 Other chronic pain; M54.50 Low back pain, unspecified; O99.334 Smoking (tobacco) complicating childbirth; F17.210 Nicotine dependence, cigarettes, uncomplicated; F12.90 Cannabis use, unspecified, uncomplicated; O70.1 Second degree perineal laceration during delivery; O62.3 Precipitate labor
CPT/HCPCS: 36415; 85027; 86850; 86900; 86901; 88307; J2540

== ENCOUNTER 2024-05-03 21:58 | Emergency (ER) | payer MEDICAID, SELFPAY ==
[2024-05-03 22:01] VITALS: BP 137/88; PULSE 79; RESP 16; TEMP 36.9; O2SAT 98
--- NOTE | 2024-05-03 22:24 | ED.GENADUL_ITS ---
Discharge Plan Disposition Patient Disposition: Home Condition: Good Discharge Details Clinical Impression: Abscess, periapical Primary Care Provider: Alicia Gray ED Provider: Domingo Lieberman Home Meds and New Rx's Prescriptions: No Action (DME) Aerochamber MV Spacer See Rx Instructions .Route Qty: 1 0RF Rx Instructions: As directed norethindrone (contraceptive) 0.35 mg tablet 0.35 mg PO DAILY Qty: 84 3RF ipratropium-albuterol 0.5 mg-3 mg(2.5 mg base)/3 mL solution for nebulization 3 ml inhalation Q6H PRN (Reason: wheezing) Qty: 90 3RF budesonide-formoterol [Symbicort] 160-4.5 mcg/actuation HFA aerosol inhaler 2 inh inhalation BID Qty: 10.2 3RF Rx Instructions: 2 puffs twice a day and may use 1-2 puffs q4-6hrs as needed as for shortness of breath. Max 12 inhalations per day montelukast [Singulair] 10 mg tablet 10 mg PO DAILY Qty: 90 3RF norgestimate-ethinyl estradiol [Sprintec (28)] 0.25-35 mg-mcg tablet 1 tab PO DAILY Qty: 84 3RF dextroamphetamine-amphetamine [Adderall XR] 20 mg capsule,extended release 24hr 40 mg PO DAILY MDD 40mg Qty: 56 0RF ibuprofen 600 mg Tablet 600 mg PO Q6H PRN PRNQty: 60 0RF Discharge Instructions Instructions: Tooth Abscess (DC) Additional Instructions: The block we administered should help improve your pain. Please take 800 mg of ibuprofen every 6 hours and 1000 mg of Tylenol every 6 hours to help with the inflammation and pain. These are the maximum doses. Please take the antibiotic that was prescribed by your dentist as directed to help with the infection in your tooth. Please use the dental list that we have provided to contact the dentist for prompt follow-up and evaluation for tooth removal. If you notice any worsening of your symptoms, or any new symptoms such as difficulty swallowing, difficulty breathing, vomiting, diarrhea, fever, chills, shortness of breath, chest pain, numbness, weakness, or fainting , please return immediately to the emergency department for reevaluation. Please follow up with your primary care provider as soon as possible for reassessment and reevaluation. As always, it was a pleasure participating in your medical care today. Referrals: Alicia Gray NP [Primary Care Provider] - [facility] General Date/Time Provider Initiated Documentation: 05/03/24 22:04 . HPI Narrative: 28-year-old female with a past medical history of asthma, depression, PCOS, high cholesterol, PTSD, presents for right upper tooth pain. Patient states that for the last 3 days she has had right upper tooth pain. She went to see her dentist today and she was prescribed Augmentin and recommended NSAID therapy. She has a root canal scheduled in 2 weeks. She has been taking Tylenol and Motrin regularly with only mild improvement. She denies fever or chills. Over the last 12 hours she has noticed an increase in swelling and the development of a small pocket of fluid at the roof of her mouth. She denies any other significant complaints at this time. No other modifying factors. Related Data Home Medications ?Medication ?Instructions ?Recorded ?Confirmed inhalational spacing device #1 ea 09/16/22 05/03/24 (Aerochamber MV spacer) ipratropium 0.5 mg-albuterol 3 mg 3 ml inhalation Q6H PRN wheezing 03/17/23 05/03/24 (2.5 mg base)/3 mL nebulization #90 mL soln ibuprofen 600 mg tablet 600 mg PO Q6H PRN PRN #60 tabs 12/20/23 05/03/24 norethindrone (contraceptive) 0.35 0.35 mg PO DAILY #84 tabs 02/20/24 05/03/24 mg tablet budesonide-formoterol HFA 160 2 inh inhalation BID #10.2 grams 04/05/24 05/03/24 mcg-4.5 mcg/actuation aerosol inhaler (Symbicort) montelukast 10 mg tablet 10 mg PO DAILY #90 tabs 04/05/24 05/03/24 (Singulair) dextroamphetamine-amphetamine ER 40 mg (2 x 20 mg) PO DAILY #56 caps 04/11/24 05/03/24 20 mg 24hr capsule,extend release (Adderall XR) norgestimate 0.25 mg-ethinyl 1 tab PO DAILY #84 tabs 04/11/24 05/03/24 estradiol 35 mcg tablet (Sprintec (28)) Previous Rx's ?Medication ?Instructions ?Recorded inhalational spacing device #1 ea 09/16/22 (Aerochamber MV spacer) ipratropium 0.5 mg-albuterol 3 mg 3 ml inhalation Q6H PRN wheezing 03/17/23 (2.5 mg base)/3 mL nebulization #90 mL soln ibuprofen 600 mg tablet 600 mg PO Q6H PRN PRN #60 tabs 12/20/23 norethindrone (contraceptive) 0.35 0.35 mg PO DAILY #84 tabs 02/20/24 mg tablet budesonide-formoterol HFA 160 2 inh inhalation BID #10.2 grams 04/05/24 mcg-4.5 mcg/actuation aerosol inhaler (Symbicort) montelukast 10 mg tablet 10 mg PO DAILY #90 tabs 04/05/24 (Singulair) dextroamphetamine-amphetamine ER 40 mg (2 x 20 mg) PO DAILY #56 caps 04/11/24 20 mg 24hr capsule,extend release (Adderall XR) norgestimate 0.25 mg-ethinyl 1 tab PO DAILY #84 tabs 04/11/24 estradiol 35 mcg tablet (Sprintec (28)) Allergies Allergy/AdvReac Type Severity Reaction Status Date / Time No Known Allergies Allergy Verified 05/03/24 22:06 General Stated Complaint: DentalOral RUTH: 4 Review of Systems All systems reviewed & are unremarkable except as noted in HPI and below Exam Narrative Exam Narrative: 1.Const: Well-nourished, Well-developed, appearing stated age 2.Eyes: PERRL, no conjunctival injection, and symmetrical lids. 3.ENT: Atraumatic external nose and ears. Moist MM. Neck: Symmetric, trachea midline, No thyromegaly. There is a small fluctuant abscess medial to tooth #7. No abscess laterally. No evidence of swelling in the posterior oropharynx or signs of oral pharyngeal compromise. 4.CVS: +S1/S2, No murmurs or gallops. Peripheral pulses 2+ and equal in all extr emities. Brisk capillary refill in all extremities. 5.RESP: Unlabored respiratory effort. Clear to auscultation bilaterally. No wheezes rales or rhonchi 6.GI: Soft, Nontender/Nondistended, No hepatosplenomegaly. No guarding or rebound. 7.MSK: Normocephalic/Atraumatic, Extremities w/o deformity or ttp No cyanosis or clubbing, Normal movement of all extremities 8.Skin: Warm, Dry. No rashes or lesions. 9.Neuro: frame stripper II-XII grossly intact. Sensation grossly intact, no focal neurologic deficits. 10.Psych: (AAO) x3. Appropriate mood and affect Course Vital Signs Vital signs: Vital Signs Temperature 36.9 C 05/03/24 22:01 Pulse 79 05/03/24 22:01 Respiratory Rate 16 05/03/24 22:01 Blood Pressure 137/88 05/03/24 22:01 Pulse Oximetry 98 05/03/24 22:01 Temperature 36.9 C 05/03/24 22:01 Temperature Source Temporal Artery Scan 05/03/24 22:01 Pulse 79 05/03/24 22:01 Respiratory Rate 16 05/03/24 22:01 Respiratory Effort Normal 05/03/24 22:09 Blood Pressure 137/88 05/03/24 22:01 Blood Pressure Position Sitting 05/03/24 22:01 Pulse Oximetry 98 05/03/24 22:01 Oxygen Delivery Method Room Air 05/03/24 22:01 Oxygen Flow Rate 0 05/03/24 22:01 Pain Level 9 05/03/24 22:09 Procedures Abscess I/D Site: Other (periapical) Side (if applicable): Right Technique: Needle Aspiration Amount of fluid expressed (mL): 1 Irrigation: No Packing used?: None Nerve Block Nerve Block 1: Time out performed: Yes Local Anesthetic: Bupivicaine 0.25% Amount of anesthesia used (mL): 6 Side: right Intraoral Nerve Block: superior alveolar Procedure Successful: Yes Patient Tolerated Procedure: well and no complications Complications: none Medical Decision Making 28-year-old female with a past medical history of asthma, depression, PCOS, high cholesterol, PTSD, presents for right upper tooth pain. Patient states that for the last 3 days she has had right upper tooth pain. She went to see her dentist today and she was prescribed Augmentin and recommended NSAID therapy. She has a root canal scheduled in 2 weeks. She has been taking Tylenol and Motrin regularly with only mild improvement. She denies fever or chills. Over the last 12 hours she has noticed an increase in swelling and the development of a small pocket of fluid at the roof of her mouth. She denies any other significant complaints at this time. No other modifying factors. Exam demonstrates well-appearing female, small medial abscess at the periapical and hard palate space around tooth 7. No evidence of airway compromise, swelling in the posterior oropharynx, or evidence of significant swelling in the neck restricting swallowing. No other abnormalities otherwise. Patient appears clinically stable with no evidence of Ludewig's angina. Discussed risk and benefits of dental block, patient consented. Dental block was administered, after numbing was achieved, the small periapical abscess was incised and drained. Small amount of purulent fluid came out. Recommend continued NSAID therapy, antibiotics, and close follow-up. Discussed red flags for which to return. I have extensively reviewed the treatment plan and discharge instructions with the patient. I have addressed all patient concerns at this time. The patient was made aware of what symptoms to monitor for that would warrant a return to the emergency department. Discussed the plan with the patient, they demonstrate verbal understanding and agreement with our assessment and plan at this time. The documentation in this chart was dictated using [employer] dictation software. Please excuse any dictation errors. Quality:SDOH Health Related Social Needs: Health related social needs inadequate housing(Z59.1) PFSH All Active Problems Abscess, periapical (Acute) Elevated blood pressure reading (Chronic) depression (Chronic) Asthma (Chronic) Borderline personality disorder (Chronic) Major depressive disorder, recurrent (Chronic) Generalized anxiety disorder (Chronic) Obesity, Class III, BMI 40-49.9 (morbid obesity) (Chronic) PCOS (polycystic ovarian syndrome) (Chronic) Hyperlipidemia (Chronic) PTSD (post-traumatic stress disorder) (Chronic) ADHD (Chronic) Chronic low back pain (Chronic) Migraine (Chronic) Cigarette smoker (Chronic) Medical History Hidradenitis suppurativa Benzodiazepine abuse Misused xanax in her teen years per former psychiatrist Suicide attempt Multiple suicide attempts in childhood Opioid use disorder, severe, in sustained remission IV Heroin use. Was on methadone or subuxone History of premature rupture of membranes (PPROM) Surgical History S/P D&C (status post dilation and curettage) History of cholecystectomy Family History Self Adopted Social History Smoking/Tobacco Use Status: Current every day Tobacco Type: cigarettes Tobacco: How many years used: 15 Quit status: considering quitting Second Hand Exposure: Yes Smoking risk assessment performed?: Yes Alcohol Intake: former Drug use: Daily Substance use type: former substance user Date of last use: Heroin 2013, marijuana and heroin Details: states marijuana daily Adopted: Yes Household members: significant other and family Housing: house Do you need help understanding health information?: Rarely Pets and animals: Yes Pets and animals: cat(s) and dog(s) Sexually active: Yes Do you think of yourself as: straight/heterosexual Current gender identity: female What is your relationship status?: living with partner How often do you talk on the phone with friends or family?: decline to answer How often do you get together with friends or relatives?: decline to answer How often do you attend jainism or hindu services?: decline to answer Do you belong to any clubs or organized social groups?: no Panel score (0-1 are the most socially isolated patients): 1 What type of physical activity do you participate in: none Frequency: does not exercise Maricruz/Restorationist: No preference Special maricruz needs: No Seatbelt use: always Helmet use: No Drive intox or ride w/intox local company intermodal truck driver: No Do you feel safe at home: Yes Do you feel safe in your relationship?: Yes History History 9 Para 0 Hx # Term Pregnancies Multiple births Hx # Pregnancies 1 Ectopic pregnancies AB induced 2 Hx Number of Living Children 0 AB spontaneous 5 Past Pregnancies Del. Date GA/Weeks # Preg Succ Route Wgt Sex Labor Lgth Anesth esia Location Prov Compl 04/24/16 7 No 07/30/19 30 No No vaginal Female regional 04/24/21 7 No 12/18/23 36 No Yes vaginal Male Janneth Seth on Delivery Date: 04/24/16 Last Updated by: Danielle Sifuentes CNM ETOP no complications Delivery Date: 07/30/19 Last Updated by: Danielle Graham CNM IOL for demise, [facility]. vaginal delivery with epidural. Donna Irma Delivery Date: 04/24/21 Last Updated by: Danielle Sifuentes CNM ETOP no complications
[2024-05-03] MEDS: Bupivacaine 0.5% Pres-Free 30 ML VIAL (22:33)
[2024-05-03] MEDS: MORPHine IR 15 MG TAB, 4 TABS/BTL PO (22:43)
== END 2024-05-03 22:43 | disposition home or self-care (01) ==
PROVIDERS: Emergency Provider Student in an Organized Health Care Education/Training Program; PCP Nurse Practitioner Family
DX: K08.89 Other specified disorders of teeth and supporting structures (principal); K04.7 Periapical abscess without sinus; F17.210 Nicotine dependence, cigarettes, uncomplicated
CPT/HCPCS: 64400; 99283; J0665